=== PATIENT | male | born 1955 | race Caucasian/White ===

== ENCOUNTER 2018-02-09 02:24 | Outpatient (CLI) | payer MEDICAID, SELFPAY ==
[2018-02-09 11:10] LABS: Hemoglobin A1C 6.1 % (4.5-6.2)
== END 2018-02-09 02:44 ==
PROVIDERS: PCP Family Medicine; Visit Provider Family Medicine
DX: E11.9 Type 2 diabetes mellitus without complications (principal)
CPT/HCPCS: 36415; 83036

== ENCOUNTER 2018-08-10 02:07 | Outpatient (CLI) | payer MEDICARE, SELFPAY ==
[2018-08-10 12:29] LABS: Hemoglobin A1C 6.5 % (4.5-6.2)
== END 2018-08-10 02:27 ==
PROVIDERS: PCP Family Medicine; Visit Provider Family Medicine
DX: E11.9 Type 2 diabetes mellitus without complications (principal)
CPT/HCPCS: 36415; 83036

== ENCOUNTER 2018-09-30 02:08 | Outpatient (CLI) | payer MEDICARE, BC, SELFPAY ==
[2018-09-30 12:03] LABS: Anion Gap 9.4 mmol/L (3-11); BUN 23 mg/dL (7-18); CO2 28.6 mmol/L (21.0-32.0); CREATININE 0.96 mg/dL (0.70-1.30); Calcium 9.1 mg/dL (8.5-10.1); Chloride 102 mmol/L (98-107); Cholesterol 172 mg/dL (50-200); Glucose 173 mg/dL (70-100); HDL Cholesterol 44 mg/dL (40-60); LDL CHOLESTEROL 106 mg/dL (<100); Potassium 4.8 mmol/L (3.5-5.1); Sodium 140 mmol/L (136-145); Triglyceride 124 mg/dL (30-150)
== END 2018-09-30 02:28 ==
PROVIDERS: PCP Family Medicine; Visit Provider Family Medicine
DX: E11.9 Type 2 diabetes mellitus without complications (principal)
CPT/HCPCS: 36415; 80048; 80061; 83721

== ENCOUNTER 2019-05-10 07:00 | Outpatient (CLI) | payer MEDICARE, BC, SELFPAY ==
[2019-05-10 11:21] LABS: Hemoglobin A1C 6.9 % (3.8-5.6)
== END 2019-05-10 07:20 ==
PROVIDERS: PCP Family Medicine; Visit Provider Family Medicine
DX: E11.9 Type 2 diabetes mellitus without complications (principal)
CPT/HCPCS: 36415; 83036

== ENCOUNTER 2020-11-22 14:15 | Outpatient (CLI) | payer MEDICARE, BC, SELFPAY ==
[2020-11-22 12:50] LABS: Hemoglobin A1C 7.9 % (<5.7)
[2020-11-22 12:52] LABS: ALT 31 U/L (16-63); AST 21 U/L (15-37); Alkaline Phosphatase 141 U/L (46-116); Anion Gap 7.6 mmol/L (3-11); BUN 16 mg/dL (7-18); Bilirubin, Total 1.8 mg/dL (0.2-1.0); CO2 26.4 mmol/L (21.0-32.0); Calcium 9.4 mg/dL (8.5-10.1); Chloride 103 mmol/L (98-107); Glucose 218 mg/dL (74-106); Potassium 4.6 mmol/L (3.5-5.1); Sodium 137 mmol/L (136-145); Total Protein 6.9 g/dL (6.4-8.2)
[2020-11-23 22:15] LABS: Calculated LDL 94 mg/dL (<100); Cholesterol 179 mg/dL (<200); HDL Cholesterol 45 mg/dL (40-60); Triglyceride 202 mg/dL (<150)
== END 2020-11-22 14:16 | disposition home or self-care (01) ==
LOC: LOS 14:18
PROVIDERS: PCP Nurse Practitioner Family; Visit Provider Nurse Practitioner Family
DX: E11.9 Type 2 diabetes mellitus without complications (principal); N52.9 Male erectile dysfunction, unspecified; R03.0 Elevated blood-pressure reading, without diagnosis of hypertension
CPT/HCPCS: 36415; 80053; 80061; 83036

== ENCOUNTER 2021-05-24 04:09 | Outpatient (CLI) | payer MEDICARE, BC, SELFPAY ==
[2021-05-24 10:07] LABS: MCH 30.4 pg (27.0-33.0); MCHC 33.1 % (32.0-36.0); MCV 91.9 fL (80-95); Platelet Count 230 10^3/uL (130-400); RBC 6.42 10^6/uL (4.36-5.78); RDW 12.1 % (11.8-14.1); RDW-SD 41.5 fL; WBC 5.58 10^3/uL (4.4-10.8)
[2021-05-24 10:54] LABS: ALT 35 U/L (16-63); AST 29 U/L (15-37); Albumin 4.2 g/dL (3.4-5.0); Alkaline Phosphatase 126 U/L (46-116); Anion Gap 6.2 mmol/L (3-11); BUN 18 mg/dL (7-18); Bilirubin, Total 2.5 mg/dL (0.2-1.0); CO2 30.8 mmol/L (21.0-32.0); Calcium 8.9 mg/dL (8.5-10.1); Calculated LDL 111 mg/dL (<100); Chloride 101 mmol/L (98-107); Cholesterol 179 mg/dL (<200); Glucose 183 mg/dL (74-106); HDL Cholesterol 56 mg/dL (40-60); Potassium 4.7 mmol/L (3.5-5.1); Sodium 138 mmol/L (136-145); Triglyceride 63 mg/dL (<150)
[2021-05-24 11:31] LABS: COMMENT (LAB VIEW ONLY) 124.95 mg/dL
[2021-05-24 11:55] LABS: HGB 19.5 g/dL (13.5-17.5)
[2021-05-24 18:19] LABS: PSA, Screening 2.8 ng/mL (0.0-4.5)
[2021-05-26 15:18] LABS: Testosterone, Total 624 ng/dL (240-950)
[2021-05-27 10:52] LABS: Hepatitis C Ab w Rflx HCV PCR Negative (Negative)
== END 2021-05-24 04:10 | disposition home or self-care (01) ==
LOC: LBO 04:10
PROVIDERS: Family Medicine; PCP Nurse Practitioner Family; Visit Provider Nurse Practitioner Family
DX: E11.9 Type 2 diabetes mellitus without complications (principal); E29.1 Testicular hypofunction; I10 Essential (primary) hypertension; Z09 Encounter for follow-up examination after completed treatment for conditions other than malignant neoplasm; Z12.5 Encounter for screening for malignant neoplasm of prostate; Z11.59 Encounter for screening for other viral diseases
CPT/HCPCS: 36415; 80053; 80061; 84153; 84403; 85027; 86803; 82043; 82570; 83036

== ENCOUNTER 2021-10-04 01:36 | Outpatient (CLI) | payer MEDICARE, BC, SELFPAY ==
[2021-10-04 12:18] LABS: HCT 47.5 % (40.0-50.0); HGB 15.9 g/dL (13.5-17.5); MCH 30.3 pg (27.0-33.0); MCHC 33.5 % (32.0-36.0); MCV 91 fL (80-95); MPV 10.5 fL (8.0-11.0); Platelet Count 257 10^3/uL (130-400); RBC 5.24 10^6/uL (4.36-5.78); RDW 12.4 % (11.8-14.1); RDW-SD 41.3 fL; WBC 5.66 10^3/uL (4.4-10.8)
[2021-10-04 12:29] LABS: Hemoglobin A1C 9.6 % (<5.7)
[2021-10-04 12:42] LABS: ALT 29 U/L (16-63); AST 21 U/L (15-37); Albumin 3.9 g/dL (3.4-5.0); Alkaline Phosphatase 130 U/L (46-116); Anion Gap 7.7 mmol/L (3-11); BUN 19 mg/dL (7-18); Bilirubin, Total 1.6 mg/dL (0.2-1.0); CO2 29.3 mmol/L (21.0-32.0); CREATININE 0.9 mg/dL (0.70-1.30); Calcium 9.8 mg/dL (8.5-10.1); Chloride 104 mmol/L (98-107); Glucose 182 mg/dL (74-106); Potassium 4.7 mmol/L (3.5-5.1); Sodium 141 mmol/L (136-145); TSH (W/Ref FT4) 1.54 uIU/mL (0.36-3.74); Total Protein 6.8 g/dL (6.4-8.2)
== END 2021-10-04 01:37 | disposition home or self-care (01) ==
LOC: LOS 01:36
PROVIDERS: PCP Nurse Practitioner Family; Visit Provider Family Medicine
DX: D75.1 Secondary polycythemia (principal); E11.9 Type 2 diabetes mellitus without complications; R42 Dizziness and giddiness; I10 Essential (primary) hypertension
CPT/HCPCS: 36415; 80053; 85027; 83036; 84443

== ENCOUNTER 2022-06-23 00:54 | Outpatient (CLI) | payer MEDICARE, BC, SELFPAY ==
[2022-06-23 12:39] LABS: MCH 29.8 pg (27.0-33.0); MCHC 32.8 % (32.0-36.0); MCV 91 fL (80-95); MPV 10.7 fL (8.0-11.0); Platelet Count 214 10^3/uL (130-400); RDW 12.7 % (11.8-14.1); RDW-SD 42.4 fL; WBC 6.06 10^3/uL (4.4-10.8)
[2022-06-23 12:47] LABS: Calculated LDL 130 mg/dL (<100); Cholesterol 207 mg/dL (<200); HDL Cholesterol 58 mg/dL (40-60); Triglyceride 97 mg/dL (<150)
[2022-06-23 12:53] LABS: HGB 19.4 g/dL (13.5-17.5)
[2022-06-23 12:54] LABS: HCT 59.1 % (40.0-50.0)
[2022-06-23 13:03] LABS: Hemoglobin A1C 9.1 % (<5.7)
== END 2022-06-23 00:55 | disposition home or self-care (01) ==
LOC: LOS 00:54
PROVIDERS: PCP Nurse Practitioner Family; Visit Provider Nurse Practitioner Family
DX: E78.5 Hyperlipidemia, unspecified (principal); D75.1 Secondary polycythemia; E11.9 Type 2 diabetes mellitus without complications
CPT/HCPCS: 36415; 80061; 85027; 83036

== ENCOUNTER 2022-06-26 14:49 | Outpatient (REF) | payer MEDICARE, BC, SELFPAY ==
[2022-06-26 13:28] LABS: COMMENT (LAB VIEW ONLY) 43.91 mg/dL; Microalb ug/mg Crea 9.3 ug/mg Cr
== END 2022-06-26 14:50 | disposition home or self-care (01) ==
LOC: LBN 14:49
PROVIDERS: PCP Nurse Practitioner Family; Visit Provider Nurse Practitioner Family
DX: E11.9 Type 2 diabetes mellitus without complications (principal)
CPT/HCPCS: 82043; 82570

== ENCOUNTER 2022-09-24 03:12 | Outpatient (CLI) | payer MEDICARE, BC, SELFPAY ==
[2022-09-24 12:42] LABS: HCT 50.5 % (40.0-50.0); HGB 17.2 g/dL (13.5-17.5); MCH 30.8 pg (27.0-33.0); MCHC 34.1 % (32.0-36.0); MCV 90 fL (80-95); MPV 10.1 fL (8.0-11.0); Platelet Count 252 10^3/uL (130-400); RBC 5.59 10^6/uL (4.36-5.78); RDW 13.3 % (11.8-14.1); RDW-SD 44.5 fL; WBC 7.31 10^3/uL (4.4-10.8)
[2022-09-24 13:15] LABS: Hemoglobin A1C 7.5 % (<5.7)
== END 2022-09-24 03:13 | disposition home or self-care (01) ==
LOC: LOS 03:12
PROVIDERS: PCP Nurse Practitioner Family; Visit Provider Nurse Practitioner Family
DX: D75.1 Secondary polycythemia (principal); E11.9 Type 2 diabetes mellitus without complications
CPT/HCPCS: 36415; 85027; 83036

== ENCOUNTER 2022-12-24 02:50 | Outpatient (CLI) | payer MEDICARE, BC, SELFPAY ==
[2022-12-24 12:13] LABS: HCT 53.9 % (40.0-50.0); HGB 18.2 g/dL (13.5-17.5); MCH 30.2 pg (27.0-33.0); MCHC 33.8 % (32.0-36.0); MCV 90 fL (80-95); MPV 10.2 fL (8.0-11.0); Platelet Count 231 10^3/uL (130-400); RBC 6.02 10^6/uL (4.36-5.78); RDW 11.9 % (11.8-14.1); WBC 5.34 10^3/uL (4.4-10.8)
[2022-12-24 12:28] LABS: Hemoglobin A1C 7.7 % (<5.7)
[2022-12-24 12:31] LABS: Calculated LDL 125 mg/dL (<100); Cholesterol 218 mg/dL (<200); HDL Cholesterol 56 mg/dL (40-60); Triglyceride 188 mg/dL (<150)
[2022-12-28 15:38] LABS: Testosterone, Total 43 ng/dL (240-950)
== END 2022-12-24 02:51 | disposition home or self-care (01) ==
LOC: LOS 02:51
PROVIDERS: PCP Nurse Practitioner Family; Visit Provider Nurse Practitioner Family
DX: D75.1 Secondary polycythemia (principal); E11.9 Type 2 diabetes mellitus without complications; E78.5 Hyperlipidemia, unspecified; E29.1 Testicular hypofunction
CPT/HCPCS: 80061; 84403; 85027; 83036

== ENCOUNTER 2023-02-19 01:01 | Outpatient (CLI) | payer MEDICARE, BC, SELFPAY ==
[2023-02-19 12:48] LABS: HCT 53.3 % (40.0-50.0); HGB 17.7 g/dL (13.5-17.5); MCH 30.2 pg (27.0-33.0); MCHC 33.2 % (32.0-36.0); MCV 91 fL (80-95); MPV 10.6 fL (8.0-11.0); Platelet Count 234 10^3/uL (130-400); RBC 5.86 10^6/uL (4.36-5.78); RDW 12.9 % (11.8-14.1); RDW-SD 43.5 fL; WBC 6.13 10^3/uL (4.4-10.8)
[2023-02-21 11:25] LABS: Testosterone, Total 163 ng/dL (240-950)
== END 2023-02-19 01:02 | disposition home or self-care (01) ==
LOC: LOS 01:01
PROVIDERS: PCP Nurse Practitioner Family; Visit Provider Nurse Practitioner Family
DX: E29.1 Testicular hypofunction (principal)
CPT/HCPCS: 36415; 84403; 85027

== ENCOUNTER 2023-04-29 10:57 | Inpatient (IN) | payer MEDICARE, BC, SELFPAY ==
[2023-04-29] VITALS (12 sets, daily range): BP systolic 144–193; BP diastolic 66–113; PULSE 63–111; RESP 18–26; TEMP 35.6–37.7; O2SAT 91–98
--- NOTE | 2023-04-29 11:45 | RT.EKG_ITS ---
APPROVED REPORT Exam: Resting ECG Reason for Exam: abd pain Patient Location: E HR:61 bpm ECG Measurements Heart Rate 61 AXIS VT 162 P 52 QRSd 81 QRS 20 QT 422 T 29 QTc 425 Conclusion Sinus rhythm...normal P axis, V-rate 60- 99 NSR, no acute STTW changes, No STEMI No change from previous
--- NOTE | 2023-04-29 11:58 | DI.CT_ITS ---
Exam(s) CT CHEST/ABD/PEL W EXAM: CT CHEST/ABD/PEL W CLINICAL HISTORY: severe abdominal pain. TECHNIQUE: Imaging Protocol: Axial computed tomography images with coronal and sagittal reformatted images were created and reviewed CONTRAST MATERIAL: Intravenous: Omnipaque 350 Contrast volume:100 ml Oral: None COMPARISON: CT RENAL COLIC WO CONTRAST from 04/25/2012 CT CHEST FOR PULMONARY EMBOLUS from 08/27/2014 FINDINGS: CHEST: LUNGS: No confluent infiltrates nor pleural effusions. No obvious lung nodules.. MEDIASTINUM: There is no hilar nor mediastinal adenopathy. Visualized thyroid unremarkable. CARDIAC: Heart size is normal. There is no pericardial effusion.Thoracic aorta caliber is normal and there is no evidence of dissection. OSSEOUS: No significant osseous lesions.Acute fractures evident.. ABDOMEN: There is no ascites. LIVER: There are no focal hepatic lesions nor dilatation of intrahepatic ducts. GALLBLADDER/BILIARY: There are multiple gallstones layered on the dependent wall the gallbladder. Ga llbladder is mildly distended but not obviously edematous and there is no pericholecystic fluid. The re is no radiopaque calculus seen in the CBD. CBD is not dilated. PANCREAS: No evidence of pancreatic mass nor dilatation of the pancreatic duct. SPLEEN: Spleen is not enlarged. There are no intrasplenic lesions. Splenic and portal veins are maurer nt. ADRENALS: There are no significant adrenal masses. KIDNEYS: No calculi nor hydronephrosis. No solid renal masses. No cysts evident. ABDOMINAL AORTA: Abdominal aorta is not enlarged. LYMPH NODES: There is no retroperitoneal nor paraaortic adenopathy. ABDOMINAL WALL: No evidence of significant anterior abdominal wall nor inguinal hernia. GI: There is no evidence of bowel obstruction. PELVIS: LYMPH NODES: There is no intrapelvic nor inguinal adenopathy. GI: No evidence of appendicitis.No evidence of sigmoid diverticulitis. URINARY BLADDER: No calculi nor masses evident REPRODUCTIVE: Moderate prostate enlargement. No obturator adenopathy. Seminal vesicles unremarkable . OSSEOUS: No significant osseous lesions. No fractures. Laminectomies in the lumbar spine noted. Mild degenerative anterolisthesis of L3 upon L4 related to facet arthropathy. Also mild anterolisthesis L4 upon L5. IMPRESSION: 1. Cholelithiasis. There are multiple gallstones in the gallbladder lumen. Gallbladder lumen is mil dly distended but does not appear edematous and there is no pericholecystic fluid. The CBD is not di lated and there are no dilated intrahepatic ducts. 2. No acute intrathoracic findings. 3. No evidence of aortic dissection. 4. Other findings as above. Called to ER. RADIATION DOSE DELIVERED: Total DLP DATA REPOSITORY: All CT scans at this facility are submitted to the National Radiology Data Registry (NRDR) Dose Index Registry (DIR) with the [employer] (ACR). RADIATION OPTIMIZATION: All CT scans at this facility use at least one of these dose optimization te chniques: automated exposure control; mA and/or kV adjustment per patient size (includes targeted exa ms where dose is matched to clinical indication); or iterative reconstruction.
[2023-04-29] MEDS: Normal Saline 1,000 ML 1000 ML IV ×2 (12:09→15:52)
[2023-04-29 12:14] LABS: Lactate 1.8 mmol/L (0.6-1.4)
[2023-04-29] MEDS: fentaNYL 100 MCG/2 ML VIAL 25 MCG IVP ×2 (12:17→13:09)
[2023-04-29 12:18] LABS: Abs Immature Grans 0.05 10^3/uL (0.0-0.06); Absolute Lymphocyte Count 0.76 10^3/uL (1.2-3.4); Absolute Monocyte Count 0.99 10^3/uL (0.1-0.8); Basophils % 0.2; HCT 54.3 % (40.0-50.0); HGB 18.5 g/dL (13.5-17.5); Immature Grans % 0.3; Lymphocytes % 4.4; MCH 30.2 pg (27.0-33.0); MCHC 34.1 % (32.0-36.0); MCV 89 fL (80-95); MPV 10.3 fL (8.0-11.0); Monocytes % 5.7; Neutrophils % 89.4; Platelet Count 264 10^3/uL (130-400); RBC 6.13 10^6/uL (4.36-5.78); RDW 11.8 % (11.8-14.1); RDW-SD 37.7 fL
[2023-04-29 12:21] LABS: Absolute Basophil Count 0.03 10^3/uL (0.0-0.2); Absolute Neutrophil Count 15.47 10^3/uL (1.2-6.7)
[2023-04-29 12:25] LABS: INR 1.1 (0.9-1.1); Prothrombin Time 11.4 sec (9.1-11.1)
[2023-04-29 12:38] LABS: Bilirubin Negative (Negative); Blood Negative (Negative); Clarity Clear (Clear); Glucose 500 mg/dL (Negative); Ketones >=160 mg/dL (Negative); Leukocyte Esterase Negative (Negative); Nitrite Negative (Negative); Specific Gravity 1.015 (1.005-1.025); Urobilinogen 0.2 mg/dL (Up to 0.2); pH 6.5 (5-8)
[2023-04-29 12:42] LABS: ALT 26 U/L (16-63); AST 22 U/L (15-37); Albumin 4.3 g/dL (3.4-5.0); Alkaline Phosphatase 152 U/L (46-116); Anion Gap 7.8 mmol/L (3-11); BUN 18 mg/dL (7-18); CO2 32.2 mmol/L (21.0-32.0); CREATININE 0.9 mg/dL (0.70-1.30); Calcium 9.5 mg/dL (8.5-10.1); Chloride 103 mmol/L (98-107); Estimated GFR 92.45 (mL/min/1.73m2); Glucose 224 mg/dL (74-106); Lipase 27 U/L (16-77); Magnesium 1.8 mg/dL (1.8-2.4); Potassium 4.6 mmol/L (3.5-5.1); Sodium 143 mmol/L (136-145); Total Protein 7.6 g/dL (6.4-8.2); Troponin I < 50 ng/L (<or=60)
--- NOTE | 2023-04-29 12:52 | W.ED.GENAD ---
Discharge Plan Disposition Patient Disposition: Admit to [facility] Discharge Details Clinical Impression: Gallstones, Biliary colic Primary Care Provider: Semaj Escobar ED Provider: Thalia Veliz Home Meds and New Rx's Prescriptions: No Action glipizide 10 mg tablet 10 mg PO DAILY Qty: 90 3RF multivitamin 1 EACH capsule 1 cap PO DAILY (DME) blood-glucose meter [[employer] Ultra2 Meter] 1 EACH kit 1 ea Miscellaneous DAILY Qty: 1 0RF empagliflozin 10 mg tablet 10 mg PO DAILY Qty: 90 3RF (DME) lancets 33 gauge misc 1 ea Miscellaneous DAILY Qty: 100 4RF Rx Instructions: One daily (DME) blood sugar diagnostic Strip See Dose Instructions .ROUTE .MEDSUPPLY Qty: 100 4RF Dose Instruction: One Daily Rx Instructions: One Daily testosterone 20.25 mg/1.25 gram (1.62 %) gel in metered-dose pump 4 pump TP DAILY Qty: 450 3RF Rx Instructions: apply 2 pumps over max area of EACH upper arm and shoulder Discharge Data Discharge Physician: Thalia Veliz Medical Decision Making This is a 67-year-old male who presents with acute abdominal pain. It does not radiate to the back but he is in moderate to severe pain. His only past surgical history is of an appendectomy. I am concerned that he could have an acute surgical abdomen because of the amount of pain and tenderness on exam. My plan is to establish an IV and to give him IV narcotics. His allergy to narcotics was that they caused him to get loopy.. We will give him fentanyl and lower doses and titrated for his pain. Will order a CT of the abdomen to rule out pathology including AAA, perforated ulcer, volvulus, mesenteric ischemia. Will obtain a right count to evaluate leukocytosis and H&H as well as his differential. Will obtain a comprehensive metabolic panel and a lipase to rule out electrolyte disorder, hepatitis, pancreatitis and evaluate his renal function and liver function. Differential Diagnosis Differential Diagnosis: Pancreatitis, ischemic, acute cholecystitis, volvulus, peptic ulcer disease Medical Records Medical records reviewed: Yes I reviewed the patient's medical records. Imaging Data Radiologic Study: Imaging: CT Scan (Chest abdomen and pelvis with IV contrast) Radiologist's impression: 1. Cholelithiasis. There are multiple gallstones in the gallbladder lumen. Gallbladder lumen is mildly distended does not appear edematous and there is no pericholecystic fluid. The CBD is not dilated and there are no dilated intrahepatic ducts. 2. No acute intrathoracic findings. 3. No evidence of aortic dissection. 4. Other findings as above Lab Data Lab results reviewed: Yes I reviewed the patient's lab results. Lab results narrative: Significant leukocytosis. Hemoconcentration, left shift, normal renal function, hyperglycemia, elevated urine ketones, glucosuria ECG Data Attestation: I personally reviewed and interpreted this ECG (s) as follows: Prior ECG tracings: available for review HPI General Date/Time Provider Initiated Documentation: 04/29/23 11:15. Limitations to Documentation: no limitations. Information obtained by: patient and family. History of Present Illness with intensity rated at 9. Quality is described as constant, HPI Narrative: Time seen was 11:15a in triage and then in the main ED. The patient is a 67-year-old male who presents with abdominal pain which began at 1 AM last night. He had a hamburger at 5 PM and snacks in the evening. The pain came on acutely and he was unable to sleep. The pain is 9 out of 10 in severity he denies any radiation or aggravating or alleviating factors. His last bowel movement was yesterday and was normal. He has had vomiting but no fever or chills. He denies any chest pain. He denies any previous similar episodes. His had the same meal and has not been ill. He has had no trauma, no foreign travel, no diarrhea fevers or chills. He has had slight increase in urinary frequency but no dysuria or discharge. He does have allergies to penicillin which causes anaphylaxis and to oxycodone which made him act loopy. He denies any blood in the stool or emesis. He did try to take Tums without relief. He denies any previous similar episodes. No fevers or chills. No URI symptoms. He also endorses bloating. No radiation to the back. He denies overuse of nonsteroidal anti-inflammatories and denies heavy drinking. His only past abdominal surgical history is an appendectomy Related Data Home Medications Medication Instructions Recorded Confirmed multivitamin 1 cap PO DAILY 09/16/12 04/29/23 blood-glucose meter (OneTouch ##1 10/06/17 04/29/23 Ultra2 Meter kit) empagliflozin 10 mg tablet 10 mg PO DAILY #90 tabs 06/18/22 04/29/23 glipizide 10 mg tablet 10 mg PO DAILY #90 tabs 06/26/22 04/29/23 blood sugar diagnostic #100 ea 01/08/23 04/29/23 lancets 33 gauge #100 ea 01/08/23 04/29/23 testosterone 4 pump topical DAILY #450 grams 03/12/23 04/29/23 Previous Rx's Medication Instructions Recorded blood-glucose meter (OneTouch ##1 10/06/17 Ultra2 Meter kit) empagliflozin 10 mg tablet 10 mg PO DAILY #90 tabs 06/18/22 glipizide 10 mg tablet 10 mg PO DAILY #90 tabs 06/26/22 blood sugar diagnostic #100 ea 01/08/23 lancets 33 gauge #100 ea 01/08/23 testosterone 4 pump topical DAILY #450 grams 03/12/23 Allergies Allergy/AdvReac Type Severity Reaction Status Date / Time ampicillin Allergy Severe Anaphylaxsi Verified 04/29/23 11:12 s Penicillins Allergy Severe Anaphylaxsi Verified 04/29/23 11:12 s sulbactam Allergy Unknown Verified 04/29/23 11:12 oxycodone [Oxycodone] AdvReac Intermediate altered Verified 04/29/23 11:12 mental status General Stated Complaint: Abd Prob INA: 3 PFSH All Active Problems Acute cholecystitis (Acute) Biliary colic (Acute) Gallstones (Acute) Polycythemia (Acute) Gilbert syndrome (Acute) Hyperlipidemia (Acute) Type 2 diabetes mellitus without complication, without long-term current use of insulin (Chronic 10/06/17) Tinnitus (Chronic 11/21/13) Sensorineural hearing loss, bilateral (Chronic 12/12/13) 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 appendectomy b. shoulder surgeries c. back surgeries with some surgical hardware placed Family History Mother , 82 Essential hypertension Stroke Colon cancer Heart disease Hypertension Father , 75 Diabetes Essential hypertension Heart disease MDS (myelodysplastic syndrome) Prostate cancer Sister No problems noted. Brother , 55 Heart disease Myocardial infarction Maternal Grandfather , 60 Lung cancer Paternal Grandfather , 85 Heart disease Cancer Maternal Grandmother , 75 Pancreatic cancer Colon cancer Paternal Grandmother , 94 Heart disease Sister No problems noted. Sister No problems noted. Brother No problems noted. Son No problems noted. Son No problems noted. Daughter No problems noted. 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 Pets and animals: No Sexually active: No Do you think of yourself as: straight/heterosexual Current gender identity: male What is your relationship status?: How often do you talk on the phone with friends or family?: never How often do you get together with friends or relatives?: decline to answer How often do you attend rastafari or buddhist services?: decline to answer Do you belong to any clubs or organized social groups?: decline to answer Panel score (0-1 are the most socially isolated patients): 1 NHANES result reviewed/action taken: No Duration: 30-45 minutes/day Frequency: 5-6 times per week Noemí/Caodaism: No preference Special noemí needs: No Seatbelt use: always Drive 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 He has a normal room air O2 sat of 98% but does appear in a moderate amount of pain. Const General: cooperative, healthy appearing, well developed, well groomed and well hydrated Nutritional Appearance: well nourished Orientation: alert, awake and oriented x3 HENMT Head: normal to inspection, normocephalic and atraumatic Ears: hearing grossly normal bilaterally and external ears normal General nose exam: external nose normal, nares normal and no nasal discharge Face and sinus: normal facial exam, sinuses nontender and face symmetric Mouth: oral mucosae normal, lip normal, tongue normal, oropharynx normal, moist mucous membranes and other (Normal phonation. The patient is handling secretions.) Throat: posterior oropharynx normal and uvula midline Eyes General: appearance normal, both eyes and all related structures Eyelids: eyelids normal Conjunctivae: conjunctivae normal Sclera: sclerae normal Cornea: corneas normal Pupils: PERRL EOM: EOM intact bilaterally and No nystagmus Neck Neck: normal visual inspection, full ROM, no lymphadenopathy, no meningeal signs, trachea midline and supple Lymphatic: no lymphadenopathy noted Chest Chest: normal inspection of the chest Resp Effort & Inspection: normal respiratory effort, able to speak in complete sentences, no audible wheezes, no nasal flaring, no respiratory distress, no retractions, no stridor, not tachypneic, no tracheal deviation, no use of accessory muscles, No prolonged expiratory phase and other (Normal inspiratory to expiratory ratio.) Auscultation: clear to auscultation bilaterally, no rales, no rhonchi, no wheezes and no rubs Tactile Fremitus: tactile fremitus absent Cardio Jugular venous pressure: no JVD Palpation: normal PMI Rate: regular rate Rhythm: regular rhythm Heart Sounds: S1 normal, S2 normal, no gallops, no murmurs and no rubs GI Other: His abdomen is protuberant. He has a right lower quadrant surgical scar. He has diffuse tenderness throughout the abdomen but does not have any involuntary guarding. He is most tender in the epigastric region. There are no pulsatile masses or bruits. He has slightly hypoactive bowel sounds. No ecchymoses no pulsatile masses or bruits General: No CVA tenderness Skin General skin exam: no rashes or lesions noted, turgor normal, no petechiae, no purpura and other (Skin is normal for ethnicity.) Lesions: no lesions Rashes: no rashes Trauma: no lacerations or abrasions Neuro General: patient alert, patient awake, patient oriented x3, moves all extremities, no meningeal signs, no focal motor deficits and CN's II-XI intact bilaterally Cranial Nerves: CN's II-XI intact bilaterally, PERRL, accommodation normal, EOM intact bilaterally, no nystagmus, facial strength normal, tongue midline, hearing normal and no nystagmus Cognition: normal cognition Speech: speech normal Gait: normal gait Motor: muscle tone normal throughout and strength 5/5 throughout Sensory Exam: no sensory deficits noted Extrem General: normal to inspection, full ROM, capillary refill normal, no clubbing, cyanosis or edema and no calf tenderness Psych Appearance: grossly normal Affect: normal affect Attitude: cooperative Thought Process: normal Thought Content: normal Insight: insight good Judgment: judgment good Other: The patient appears to have capacity make medical decisions. Course 1534 Pm the patient is still having pain, discussed the CT findings. 1631 PM: I have reviewed the EKG and the patient has no QT prolongation. I have written for jose and will consult general surgery for gallstones with continued pain. 1720PM: patient has been seen by general surgery who will admit the patient Vital Signs Vital signs: Vital Signs Temperature 35.6 C L 04/29/23 11:08 Pulse 70 04/29/23 11:08 Respiratory Rate 18 04/29/23 11:08 Blood Pressure 181/96 H 04/29/23 11:08 Pulse Oximetry 97 04/29/23 11:08 Temperature 35.6 C L 04/29/23 11:08 Pulse 70 04/29/23 11:08 Respiratory Rate 18 04/29/23 11:08 Respiratory Effort Normal, Non-Labored 04/29/23 11:42 Blood Pressure 181/96 H 04/29/23 11:08 Pulse Oximetry 97 04/29/23 11:08 Oxygen Delivery Method Room Air 04/29/23 11:08 Oxygen Flow Rate 0 04/29/23 11:08 Lab/Test Results Lab/Test Results: Laboratory Tests Range/Units 04/29/23 04/29/23 12:09 12:31 WBC (4.4-10.8) 10^3/uL 17.30 H RBC (4.36-5.78) 10^6/uL 6.13 H Hgb (13.5-17.5) g/dL 18.5 H Hct (40.0-50.0) % 54.3 H MCV (80-95) fL 89 MCH (27.0-33.0) pg 30.2 MCHC (32.0-36.0) % 34.1 RDW (11.8-14.1) % 11.8 Plt Count (130-400) 10^3/uL 264 MPV (8.0-11.0) fL 10.3 Immature Gran % 0.3 Neutrophils % 89.4 Lymphocytes % 4.4 Monocytes % 5.7 Eosinophils % 0.0 Basophils % 0.2 Nucleated RBC % (0.0-0.3) % 0.0 Absolute Neutrophils (1.2-6.7) 10^3/uL 15.47 H Absolute Lymphocytes (1.2-3.4) 10^3/uL 0.76 L Absolute Monocytes (0.1-0.8) 10^3/uL 0.99 H Absolute Eosinophils (0.0-0.7) 10^3/uL 0.00 Absolute Basophils (0.0-0.2) 10^3/uL 0.03 PT (9.1-11.1) sec 11.4 H INR (0.9-1.1) 1.1 VBG Lactate (0.6-1.4) mmol/L 1.8 H Sodium (136-145) mmol/L 143 Potassium (3.5-5.1) mmol/L 4.6 Chloride (98-107) mmol/L 103 Carbon Dioxide (21.0-32.0) mmol/L 32.2 H Anion Gap (3-11) mmol/L 7.8 BUN (7-18) mg/dL 18 Creatinine (0.70-1.30) mg/dL 0.9 Est GFR (CKD-EPI 2020) (mL/min/1.73m2) 92.45 Glucose (74-106) mg/dL 224 H Calcium (8.5-10.1) mg/dL 9.5 Magnesium (1.8-2.4) mg/dL 1.8 Total Bilirubin (0.2-1.0) mg/dL 2.0 H AST (15-37) U/L 22 ALT (16-63) U/L 26 Alkaline Phosphatase (46-116) U/L 152 H Troponin I (<or=60) ng/L < 50 Total Protein (6.4-8.2) g/dL 7.6 Albumin (3.4-5.0) g/dL 4.3 Lipase (16-77) U/L 27 Urine Color (Yellow) Yellow Urine Clarity (Clear) Clear Urine pH (5-8) 6.5 Ur Specific [place] (1.005-1.025) 1.015 Urine Protein (Negative) mg/dL Negative Urine Ketones (Negative) mg/dL >=160 H Urine Blood (Negative) Negative Urine Nitrite (Negative) Negative Urine Bilirubin (Negative) Negative Urine Urobilinogen (Up to 0.2) mg/dL 0.2 Ur Leukocyte Esterase (Negative) Negative Urine Glucose (Negative) mg/dL 500 H Critical Care Time Critical Care Time Critical Care Time: Yes Total Critical Care Time: 51 Attestation: This includes time at the bedside including frequent reassessment, review of labs and EKG and radiographs, review of old records and consultation with general surgery.
[2023-04-29] MEDS: metroNIDAZOLE 500 MG/100 ML BAG 100 MG IVPB ×2 (13:20→21:19)
[2023-04-29] MEDS: Omnipaque 350 MG/ML 100 ML BTL IJ (13:33)
[2023-04-29] MEDS: Normal Saline - Diluent 50 ML VIAL IJ (13:35)
[2023-04-29] MEDS: levoFLOXacin 750 MG/150 ML BAG 100 MG IVPB (14:08)
[2023-04-29 15:21] LABS: Troponin I < 50 ng/L (<or=60)
[2023-04-29] MEDS: HYDROmorphone 2 MG/ML SYR 1 MG IVP (15:44)
[2023-04-29] MEDS: Ondansetron 4 MG/2 ML VIAL IVP ×2 (16:41→20:34)
--- NOTE | 2023-04-29 17:23 | W.PM.HP.N ---
Date of service: 04/29/23 Time of Service: 17:23 Assessment and Plan Assessment and plan (1) Acute cholecystitis: Status: Acute Assessment and plan: Although the CAT scan does not show obvious pericholecystic fluid or inflammation, he certainly has some clinical features here that are consistent with acute cholecystitis. Furthermore, he has a fairly significant gallstone burden. In that regards, I do think cholecystitis is the most likely diagnosis. Mesenteric ischemia is also within the realm of possibilities here. However, his pain does seem in proportion to the examination. Furthermore, there is pretty good visualization of the SMA proper as well as the other mesenteric vessels, and they appear well-perfused without any evidence of significant enteritis or other small bowel pathology. For now, I will start him on some antibiotics and continue with some gentle fluid resuscitation. Will repeat a lactate. Assuming he does well through the night, then we will plan for cholecystectomy tomorrow. History of Present Illness History of Present Illness Chief Complaint: Abdominal pain with nausea Narrative: Matti 67 years old, he was awoken from sleep around 1 AM with sharp, slightly right-sided abdominal pain. He described it as stabbing in nature. He got up and tried to move around a little bit. He found no relief. He took some Tums. Not long after he developed some increased nausea with several episodes of vomiting. This also failed to relieve any of the discomfort. The pain continued through the morning time into today. It has been fairly constant since this afternoon. Review of Systems Constitutional Constitutional: Reports anorexia, Denies body ache(s), Denies fatigue, Denies fever(s), Denies lethargy and Denies poor appetite Eyes Eyes: Reports system reviewed and no additional complaints, except as documented ENT Ears, Nose, Mouth, and Throat: Reports system reviewed and no additional complaints, except as documented Cardiovascular Cardiovascular: Reports system reviewed and no additional complaints, except as documented, Denies chest pain and Denies dyspnea Respiratory Respiratory: Denies chest congestion, Denies cough and Denies dyspnea Gastrointestinal Gastrointestinal: Reports abdominal pain, Reports cramping, Reports nausea and Reports vomiting Genitourinary Genitourinary: Reports system reviewed and no additional complaints, except as documented Musculoskeletal Musculoskeletal: Reports arthralgias Neurologic Neurologic: Reports system reviewed and no additional complaints, except as documented Psychiatric Psychiatric: Reports system reviewed and no additional complaints, except as documented Endocrine Endocrine: Denies fatigue Hematologic/Lymphatic Hematologic/Lymphatic: Denies easy bleeding and Denies easy bruising PFSH All Active Problems (Updated 04/29/23 @ 17:31 by Santos Lawrence MD) Acute cholecystitis (Acute) Biliary colic (Acute) Gallstones (Acute) Polycythemia (Acute) Gilbert syndrome (Acute) Hyperlipidemia (Acute) Type 2 diabetes mellitus without complication, without long-term current use of insulin (Chronic 10/06/17) Tinnitus (Chronic 11/21/13) Sensorineural hearing loss, bilateral (Chronic 12/12/13) 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 appendectomy b. shoulder surgeries c. back surgeries with some surgical hardware placed Family History Mother , 82 Essential hypertension Stroke Colon cancer Heart disease Hypertension Father , 75 Diabetes Essential hypertension Heart disease MDS (myelodysplastic syndrome) Prostate cancer Sister No problems noted. Brother , 55 Heart disease Myocardial infarction Maternal Grandfather , 60 Lung cancer Paternal Grandfather , 85 Heart disease Cancer Maternal Grandmother , 75 Pancreatic cancer Colon cancer Paternal Grandmother , 94 Heart disease Sister No problems noted. Sister No problems noted. Brother No problems noted. Son No problems noted. Son No problems noted. Daughter No problems noted. 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 Pets and animals: No Sexually active: No Do you think of yourself as: straight/heterosexual Current gender identity: male What is your relationship status?: How often do you talk on the phone with friends or family?: never How often do you get together with friends or relatives?: decline to answer How often do you attend voodoo or pentecostalism services?: decline to answer Do you belong to any clubs or organized social groups?: decline to answer Panel score (0-1 are the most socially isolated patients): 1 NHANES result reviewed/action taken: No Duration: 30-45 minutes/day Frequency: 5-6 times per week Noemí/Yarsani: No preference Special noemí needs: No Seatbelt use: always Drive intox or ride w/intox pick up truck driver: No Do you feel safe in your relationship?: Yes Meds Allergies and Home Medications Allergies Allergy/AdvReac Type Severity Reaction Status Date / Time ampicillin Allergy Severe Anaphylaxsi Verified 04/29/23 11:12 s Penicillins Allergy Severe Anaphylaxsi Verified 04/29/23 11:12 s sulbactam Allergy Unknown Verified 04/29/23 11:12 oxycodone [Oxycodone] AdvReac Intermediate altered Verified 04/29/23 11:12 mental status Home Medications Medication Instructions Recorded Confirmed Type multivitamin 1 cap PO DAILY 09/16/12 01/07/23 History blood-glucose meter ([employer] ##1 10/06/17 01/07/23 Rx Ultra2 Meter kit) empagliflozin 10 mg tablet 10 mg PO DAILY #90 tabs 06/18/22 01/07/23 Rx glipizide 10 mg tablet 10 mg PO DAILY #90 tabs 06/26/22 01/07/23 Rx blood sugar diagnostic #100 ea 01/08/23 Rx lancets 33 gauge #100 ea 01/08/23 Rx testosterone 4 pump topical DAILY #450 grams 03/12/23 Rx Exam Const General: cooperative and healthy appearing Nutritional Appearance: average body habitus Orientation: alert, awake and oriented x3 HENMT Head: normal to inspection Eyes General: appearance normal, both eyes and all related structures Neck Neck: normal visual inspection, full ROM and no lymphadenopathy Chest Chest: normal inspection of the chest Resp Effort & Inspection: normal respiratory effort Auscultation: clear to auscultation bilaterally Cardio Rate: regular rate Rhythm: regular rhythm Heart Sounds: S1 normal and S2 normal GI Inspection: normal to inspection and distended Palpation: soft, hernia (Reducible umbilical) and tender Percussion: normal to percussion Auscultation: normal bowel sounds Skin General skin exam: no rashes or lesions noted Neuro General: patient alert, patient awake and patient oriented x3 Extrem Right lower extremity: cyanosis and edema Left lower extremity: cyanosis and edema Results Labs 04/29/23 12:09 04/29/23 12:09 Labs: Laboratory Results - last 24 hr 04/29/23 04/29/23 04/29/23 12:09 12:31 14:58 WBC 17.30 H RBC 6.13 H Hgb 18.5 H Hct 54.3 H MCV 89 MCH 30.2 MCHC 34.1 RDW 11.8 Plt Count 264 MPV 10.3 Immature Gran % 0.3 Neutrophils % 89.4 Lymphocytes % 4.4 Monocytes % 5.7 Eosinophils % 0.0 Basophils % 0.2 Nucleated RBC % 0.0 Absolute Neutrophils 15.47 H Absolute Lymphocytes 0.76 L Absolute Monocytes 0.99 H Absolute Eosinophils 0.00 Absolute Basophils 0.03 PT 11.4 H INR 1.1 VBG Lactate 1.8 H Sodium 143 Potassium 4.6 Chloride 103 Carbon Dioxide 32.2 H Anion Gap 7.8 BUN 18 Creatinine 0.9 Est GFR (CKD-EPI 2020) 92.45 Glucose 224 H Calcium 9.5 Magnesium 1.8 Total Bilirubin 2.0 H AST 22 ALT 26 Alkaline Phosphatase 152 H Troponin I < 50 < 50 Total Protein 7.6 Albumin 4.3 Lipase 27 Urine Color Yellow Urine Clarity Clear Urine pH 6.5 Ur Specific [place] 1.015 Urine Protein Negative Urine Ketones >=160 H Urine Blood Negative Urine Nitrite Negative Urine Bilirubin Negative Urine Urobilinogen 0.2 Ur Leukocyte Esterase Negative Urine Glucose 500 H Last Vital Signs Temp 98.3 F 04/29/23 15:46 Pulse 111 H 04/29/23 15:46 Resp 18 04/29/23 15:46 BP 193/93 H 04/29/23 15:46 Pulse Ox 98 04/29/23 15:46 Time Spent Time spent with Patient: 40-54 minutes Time was spent: preparing to see the patient(eg.review tests), obtaining and/or reviewing separately otained hiistory, indepentently interpreting results and counseling the patient
[2023-04-29] MEDS: ACETAMINOPHEN 1,000 MG/100 ML BTL 400 MG IVPB (20:34)
[2023-04-29] MEDS: Lactated Ringers 1,000 ML 125 ML IV (20:34)
[2023-04-29] MEDS: HYDROmorphone 2 MG/ML SYR 0.5 MG IVP (20:35)
[2023-04-29] MEDS: Normal Saline Flush 10 ML SYR IVP (20:35)
[2023-04-29] MEDS: Pantoprazole 40 MG VIAL IVP (21:19)
[2023-04-29] MEDS: CEFEPIME 2 GM in Normal Saline 100 ML IVPB (23:03)
[2023-04-30] VITALS (15 sets, daily range): BP systolic 121–179; BP diastolic 69–92; PULSE 77–102; RESP 12–20; TEMP 36.4–37.3; O2SAT 91–99; BMI 27.3
[2023-04-30] MEDS: HYDROmorphone 2 MG/ML SYR 0.5 MG IVP ×3 (01:43→11:18)
[2023-04-30] MEDS: ACETAMINOPHEN 1,000 MG/100 ML BTL 400 MG IVPB (04:18)
[2023-04-30] MEDS: metroNIDAZOLE 500 MG/100 ML BAG 100 MG IVPB ×2 (05:20→19:54)
[2023-04-30 06:39] LABS: Abs Immature Grans 0.14 10^3/uL (0.0-0.06); Absolute Basophil Count 0.04 10^3/uL (0.0-0.2); Absolute Neutrophil Count 18.37 10^3/uL (1.2-6.7); Basophils % 0.2; HCT 51.2 % (40.0-50.0); HGB 17.2 g/dL (13.5-17.5); Immature Grans % 0.7; Lymphocytes % 4.1; MCH 30.5 pg (27.0-33.0); MCHC 33.6 % (32.0-36.0); MCV 91 fL (80-95); MPV 10.1 fL (8.0-11.0); Monocytes % 6.8; Neutrophils % 88.2; Platelet Count 186 10^3/uL (130-400); RBC 5.64 10^6/uL (4.36-5.78); RDW 12.3 % (11.8-14.1); RDW-SD 40.7 fL; WBC 20.83 10^3/uL (4.4-10.8)
[2023-04-30 06:50] LABS: Absolute Lymphocyte Count 0.85 10^3/uL (1.2-3.4); Absolute Monocyte Count 1.42 10^3/uL (0.1-0.8)
[2023-04-30 06:55] LABS: ALT 19 U/L (16-63); AST 23 U/L (15-37); Albumin 3.3 g/dL (3.4-5.0); Alkaline Phosphatase 125 U/L (46-116); Anion Gap 10.1 mmol/L (3-11); BUN 18 mg/dL (7-18); CO2 25.9 mmol/L (21.0-32.0); Calcium 8.7 mg/dL (8.5-10.1); Chloride 106 mmol/L (98-107); Estimated GFR 81.47 (mL/min/1.73m2); Glucose 186 mg/dL (74-106); Lipase 19 U/L (16-77); Sodium 142 mmol/L (136-145); Total Protein 6.5 g/dL (6.4-8.2)
--- NOTE | 2023-04-30 07:11 | PGE_ITS ---
Date of Service Date of service: 04/30/23 Time of Service: 07:11 Assessment and Plan Assessment and plan (1) Acute cholecystitis: Status: Acute Assessment and plan: Were planning for laparoscopic cholecystectomy today. Unfortunately, the bilirubin is a little bit elevated on the comprehensive metabolic panel this morning. However, this is a little complicated by his gilbert syndrome. I will check the direct and indirect bilirubin levels.for now, we will plan on cholecystectomy, with possible intraoperative cholangiogram. Subjective Subjective Interval history since last seen: Matti continued to have pain through the abdomen overnight, which eventually radiated to the right upper quadrant. He denied any more nausea or vomiting. Exam GI Other: Abdomen is soft, and a little more tender over the gallbladder. He is not distended. He does have bowel sounds. Objective Last Vital Signs Temp 99.9 F H 04/29/23 20:14 Pulse 63 04/29/23 20:14 Resp 18 04/29/23 20:14 BP 144/89 H 04/29/23 20:14 Pulse Ox 91 L 04/29/23 20:14 Laboratory Results - last 24 hr 04/29/23 04/29/23 04/29/23 12:09 12:31 14:58 WBC 17.30 H RBC 6.13 H Hgb 18.5 H Hct 54.3 H MCV 89 MCH 30.2 MCHC 34.1 RDW 11.8 Plt Count 264 MPV 10.3 Immature Gran % 0.3 Neutrophils % 89.4 Lymphocytes % 4.4 Monocytes % 5.7 Eosinophils % 0.0 Basophils % 0.2 Nucleated RBC % 0.0 Absolute Neutrophils 15.47 H Absolute Lymphocytes 0.76 L Absolute Monocytes 0.99 H Absolute Eosinophils 0.00 Absolute Basophils 0.03 PT 11.4 H INR 1.1 VBG Lactate 1.8 H Sodium 143 Potassium 4.6 Chloride 103 Carbon Dioxide 32.2 H Anion Gap 7.8 BUN 18 Creatinine 0.9 Est GFR (CKD-EPI 2020) 92.45 Glucose 224 H Calcium 9.5 Magnesium 1.8 Total Bilirubin 2.0 H AST 22 ALT 26 Alkaline Phosphatase 152 H Troponin I < 50 < 50 Total Protein 7.6 Albumin 4.3 Lipase 27 Urine Color Yellow Urine Clarity Clear Urine pH 6.5 Ur Specific [place] 1.015 Urine Protein Negative Urine Ketones >=160 H Urine Blood Negative Urine Nitrite Negative Urine Bilirubin Negative Urine Urobilinogen 0.2 Ur Leukocyte Esterase Negative Urine Glucose 500 H 04/29/23 04/29/23 04/30/23 20:15 21:55 06:22 WBC 20.83 H RBC 5.64 Hgb 17.2 Hct 51.2 H MCV 91 MCH 30.5 MCHC 33.6 RDW 12.3 Plt Count 186 MPV 10.1 Immature Gran % 0.7 Neutrophils % 88.2 Lymphocytes % 4.1 Monocytes % 6.8 Eosinophils % 0.0 Basophils % 0.2 Nucleated RBC % 0.0 Absolute Neutrophils 18.37 H Absolute Lymphocytes 0.85 L Absolute Monocytes 1.42 H Absolute Eosinophils 0.00 Absolute Basophils 0.04 PT INR VBG Lactate Cancelled 1.0 Sodium 142 Potassium 4.0 Chloride 106 Carbon Dioxide 25.9 Anion Gap 10.1 BUN 18 Creatinine 1.0 Est GFR (CKD-EPI 2020) 81.47 Glucose 186 H Calcium 8.7 Magnesium Total Bilirubin 3.0 H AST 23 ALT 19 Alkaline Phosphatase 125 H Troponin I Total Protein 6.5 Albumin 3.3 L Lipase 19 Urine Color Urine Clarity Urine pH Ur Specific [place] Urine Protein Urine Ketones Urine Blood Urine Nitrite Urine Bilirubin Urine Urobilinogen Ur Leukocyte Esterase Urine Glucose Time Spent with Patient Time Spent with Patient: 25-34 minutes Time was spent: preparing to see the patient(eg.review tests), referring, communicating with other health career services officer, indepentently interpreting results and counseling the patient
[2023-04-30] MEDS: CEFEPIME 2 GM in Normal Saline 100 ML IVPB ×2 (08:06→18:18)
[2023-04-30] MEDS: Normal Saline Flush 10 ML SYR IVP (08:07)
[2023-04-30 08:47] LABS: Lab Add On Test DONE
[2023-04-30] MEDS: Insulin Aspart 300 UNITS/3 ML PEN SC ×2 (08:49→18:19)
[2023-04-30 09:14] LABS: Bilirubin, Direct 0.4 mg/dL (0.0-0.2)
[2023-04-30] MEDS: Lactated Ringers 1,000 ML 125 ML IV (10:02)
--- NOTE | 2023-04-30 11:48 | ANES.PREOP_ITS ---
General Info Date of Service Date Performed: 04/30/23 Height: 5 ft 9 in Weight: 83.915 kg Body Mass Index (BMI): 27.3 Surgical Procedure: Operation Date: 04/30/23 10:10 Proposed Procedure Side Surgeon p Cholecystectomy Laparoscopic Cholangio Santos Lawrence MD Meds Allergies and Home Medications Allergies Allergy/AdvReac Type Severity Reaction Status Date / Time ampicillin Allergy Severe Anaphylaxsi Verified 04/29/23 11:12 s Penicillins Allergy Severe Anaphylaxsi Verified 04/29/23 11:12 s sulbactam Allergy Unknown Verified 04/29/23 11:12 oxycodone [Oxycodone] AdvReac Intermediate altered Verified 04/29/23 11:12 mental status Home Medication Medication Instructions Recorded multivitamin 1 cap PO DAILY 09/16/12 blood-glucose meter ([employer] ##1 10/06/17 Ultra2 Meter kit) empagliflozin 10 mg tablet 10 mg PO DAILY #90 tabs 06/18/22 glipizide 10 mg tablet 10 mg PO DAILY #90 tabs 06/26/22 blood sugar diagnostic #100 ea 01/08/23 lancets 33 gauge #100 ea 01/08/23 testosterone 4 pump topical DAILY #450 grams 03/12/23 Current Visit Medications: Current Medications Generic Name Dose Route Start Last Admin Trade Name Freq PRN Reason Stop Dose Admin Dextrose 0 gm 04/29/23 20:15 Glucose Oral Gel 15 Gm/37.5 Gm Tube PO DIRECTED PRN Dextrose/Water 0 gm 04/29/23 20:15 Dextrose 50%-Water 25 Gm/50 Ml Syr IVP DIRECTED PRN Enoxaparin Sodium 40 mg 04/30/23 08:00 04/30/23 09:43 Enoxaparin 40 Mg/0.4 Ml Syr SC Not Given Q24H CLEVE Hydromorphone HCl 0.5 mg 04/30/23 01:32 04/30/23 11:18 Hydromorphone 2 Mg/Ml Syr IVP 0.5 mg Q4H PRN PRN Administration Ringer's Solution 1,000 mls @ 125 mls/hr 04/29/23 20:15 04/30/23 10:02 IV 125 mls/hr INFUSION CLEVE Administration Acetaminophen 1,000 mg in 100 mls @ 400 mls/hr 04/29/23 20:15 04/30/23 09:48 Ofirmev IVPB Infused Q8H PRN PRN Infusion Cefepime HCl 2 gm/ Sodium 100 mls @ 200 mls/hr 04/30/23 00:00 04/30/23 08:45 Chloride IVPB Infused Q8H CLEVE Infusion Metronidazole 500 mg in 100 mls @ 100 mls/hr 04/29/23 22:00 04/30/23 05:20 Flagyl IVPB 100 mls/hr Q8H CLEVE Administration IV Miscellaneous Supplies 1 each 04/29/23 20:15 Iv Access IV [facility]ED [facility] Indocyanine Green 5 mg 04/30/23 08:45 Indocyanine Green 25 Mg Vial IVP [facility] Insulin Aspart 0 units 04/30/23 08:00 04/30/23 08:49 Insulin Aspart 300 Units/3 Ml Pen SC 2 unit 0800,1200,1700 CLEVE Administration Protocol Magnesium Hydroxide 30 ml 04/29/23 20:15 Milk Of Magnesia 30 Ml Cup PO DIRECTED PRN Ondansetron HCl 4 mg 04/29/23 20:15 04/29/23 20:34 Ondansetron 4 Mg/2 Ml Vial IVP 4 mg Q4H PRN PRN Administration Pantoprazole Sodium 40 mg 04/29/23 22:00 04/29/23 21:19 Pantoprazole 40 Mg Vial IVP 40 mg Q24H CLEVE Administration Simethicone 80 mg 04/29/23 20:15 Simethicone 80 Mg Chew PO Q4H PRN PRN Sodium Chloride 0 ml 04/29/23 20:15 Normal Saline Flush 10 Ml Syr IVP PRN PRN Sodium Chloride 0 ml 04/29/23 20:15 04/30/23 08:07 Normal Saline Flush 10 Ml Syr IVP 20 ml BID CLEVE Administration Sodium Chloride 0 ml 04/29/23 20:15 Normal Saline 10 Ml Vial IJ DIRECTED PRN PFSH Active Problems Active Problems: Problem Status Onset Code Acute cholecystitis K81.0 Biliary colic K80.50 Gallstones K80.20 Polycythemia D75.1 Gilbert syndrome E80.4 Hyperlipidemia E78.5 Type 2 diabetes mellitus without complication, without long-term current use of insulin 10/06/17 E11.9 Tinnitus 11/21/13 H93.19 Sensorineural hearing loss, bilateral 12/12/13 H90.3 Impotence of organic origin 06/25/11 N52.9 Hypogonadism in male 09/21/15 E29.1 Spinal stenosis M48.00 Medical History Medical History Impacted cerumen (12/04/14) Personal history of urinary calculi Surgical History Surgical History History of appendectomy History of arthroscopy of knee Status post laminectomy Status post rotator cuff repair Rotator Cuff Repair LEFT 2011 RIGHT 2013 LAMINECTOMY (~2004) FOR EXPLORATION Arthroplasty of knee (~1999) Appendectomy (~2006) H/O surgical procedure a. appendectomy b. shoulder surgeries c. back surgeries with some surgical hardware placed Tobacco Smoking/Tobacco Use Status: Never Passive smoking exposure: No Second hand exposure: No Alcohol Alcohol Intake: current Alcohol intake frequency: a few times a month Alcohol type: hard liquor Substance Use Substance use: Never Substance use type: does not use Vital Signs and Lab Results Vital Signs Most Recent Vital Signs in EMR: Most Recent Vital Signs Temp Pulse Resp BP Pulse Ox 36.9 C 89 20 121/72 96 04/30/23 07:11 04/30/23 07:11 04/30/23 07:11 04/30/23 07:11 04/30/23 07:11 Point of Care Results Point of Care Results: Finger Stick Blood Glucose 181 04/30/23 07:43 Lab Results 04/30/23 06:22 04/30/23 06:22 Blood Type / Crossmatch: 2 No Data to Display Complete Blood Count: 2 White Blood Count 20.83 10^3/uL (4.4-10.8) H 04/30/23 06:22 Red Blood Count 5.64 10^6/uL (4.36-5.78) 04/30/23 06:22 Hemoglobin 17.2 g/dL (13.5-17.5) 04/30/23 06:22 Hematocrit 51.2 % (40.0-50.0) H 04/30/23 06:22 Platelet Count 186 10^3/uL (130-400) 04/30/23 06:22 Venous Blood Lactate 1.0 mmol/L (0.6-1.4) 04/29/23 21:55 Complete Metabolic Panel: 2 Sodium 142 mmol/L (136-145) 04/30/23 06:22 Potassium 4.0 mmol/L (3.5-5.1) 04/30/23 06:22 Chloride 106 mmol/L (98-107) 04/30/23 06:22 Carbon Dioxide 25.9 mmol/L (21.0-32.0) 04/30/23 06:22 BUN 18 mg/dL (7-18) 04/30/23 06:22 Creatinine 1.0 mg/dL (0.70-1.30) 04/30/23 06:22 Est GFR (CKD-EPI 2020) 81.47 (mL/min/1.73m2) 04/30/23 06:22 Magnesium 1.8 mg/dL (1.8-2.4) 04/29/23 12:09 Calcium 8.7 mg/dL (8.5-10.1) 04/30/23 06:22 Albumin 3.3 g/dL (3.4-5.0) L 04/30/23 06:22 Glucose 186 mg/dL (74-106) H 04/30/23 06:22 Liver Function Panel: 2 Alanine Aminotransferase (ALT/SGPT) 19 U/L (16-63) 04/30/23 06: 22 Aspartate Amino Transf (AST/SGOT) 23 U/L (15-37) 04/30/23 06:22 Coagulation Panel: 2 INR International Normalized Ratio 1.1 (0.9-1.1) 04/29/23 12:0 9 Prothrombin Time 11.4 sec (9.1-11.1) H 04/29/23 12:09 Cardiac Panel: 2 Troponin I < 50 ng/L (<or=60) 04/29/23 Arterial Blood Gas: 2 No Data to Display Venous Blood Gas: 2 No Data to Display Pancreas Panel: 2 Lipase 19 U/L (16-77) 04/30/23 06:22 Thyroid Panel: 2 No Data to Display Infectious Disease: 2 No Data to Display Blood Cultures: 2 No Data to Display Toxicology Panel: 2 No Data to Display Imaging and Studies Imaging and Studies Study information below may be from another EMR and interpreted by another provider. Please see original notes in EMR for more complete details. EKG Summary: EKG PATIENT NAME: Matti Umanzor UNIT #: [id number] ORDERING PROVIDER: Thalia Veliz M.D. PRIMARY CARE PROVIDER: MATTHEW DOWNEY NP DATE/TIME OF SERVICE: 04/29/23 1215 : 1955 PERFORMING LOCATION: ER APPROVED REPORT Exam: Resting ECG Reason for Exam: abd pain Patient Location: E HR:61 bpm ECG Measurements Heart Rate 61 AXIS DC 162 P 52 QRSd 81 QRS 20 QT 422 T29 QTc 425 Conclusion Sinus rhythm...normal P axis, V-rate 60- 99 NSR, no acute STTW changes, No STEMI No change from previous - <Electronically signed by Thalia Veliz M.D. in [place]> E-Sign Date: 04/29/23 E-Sign Time: 1306 ADDENDUM APPROVED REPORT Exam: Resting ECG Reason for Exam: abd pain Patient Location: E HR:61 bpm ECG Measurements Heart Rate 61 AXIS DC 162 P 52 QRSd 81 QRS 20 QT 422 T29 QTc 425 Conclusion Sinus rhythm...normal P axis, V-rate 60- 99 NSR, no acute STTW changes, No STEMI No change from previous. no QT prolongation Electronically signed by: <Electronically signed by Thalia Veliz M.D. in [place]> 04/29/23 1651 Cosigned by: Anesthesia Assessment and Plan Anesthesia History Personal History: No History of Anesthesia Complications Family History: No Family History of Anesthesia Complications Exercise Tolerance Exercise Tolerance: Metabolic Equivalents>4 Pertinent Negatives Pertinent Negatives: No Symptoms of GERD, No Major Cardiovascular Symptoms or Complaints, No Major Pulmonary Symptoms or Complaints and No History of CVA/TIA Cardiac & Pulmonary Exam Cardiac Exam: Normal S1/S2 Heart Sounds Pulmonary Exam: Clear Bilateral Breath Sounds Implantable Cardiac Device Does patient have a Pacemaker or an ICD?: No Airway Exam Known Difficult Airway: No Mallampati Class: 2 Mouth Opening: Normal (> 3cm) Thyromental Distance: Greater than 3 cm Neck Range of Motion: Full ROM Neck Circumference: Normal Teeth Condition: Generalized Poor Dentition, Loose or Chipped and Dental Caries Tooth Numberin 1. Missing ASA Classification ASA Score: ASA 2 Emergency Case?: No NPO Status NPO Status: NPO Clears >2 hours, Solids >8 hours Anesthesia Plan Resuscitation Status: Full Code Anesthesia Technique: General Anesthesia Airway Planned: Endotracheal Tube Monitors Used: Standard Monitors Preoperative Comments:: Preop BGL 147
[2023-04-30] MEDS: Lactated Ringers 1,000 ML 30 ML IV ×2 (12:30→14:50)
--- NOTE | 2023-04-30 12:57 | PDOC.CMIN ---
Date of service: 04/30/23 Time of Service: 12:57 Care Management Initial Assmt Initial Assessment REASON FOR HOSPITALIZATION:: Cholecystitis PREVIOUS FUNCTIONAL STATUS/SOCIAL/FAMILY SUPPORTS:: Resides locally in [place], with , Denise. CURRENT FUNCTIONAL STATUS:: Per MD, anticipate laparoscopic cholecystectomy with possible intraoperative cholangiogram once bilirubin normalizes; requiring further monitoring at this time. CM unable to meet with Matti as he is out of room at time of consult, Matti's , daughter and son are awaiting his return from the OR. ADVANCE DIRECTIVES:: BHASKAR MATSON Has patient been provided with info about the portal/API?: Yes Did the patient sign up for the portal?: Yes CODE STATUS:: Full Code INSURANCE COVERAGE / FINANCIAL ISSUES:: BC/BS MCR Replacement CURRENT HOME/COMMUNITY SERVICES/EQUIPMENT:: None, currently. PRIMARY CARE PHYSICIAN:: Semaj Escobar POTENTIAL DISCHARGE NEEDS:: Surgical intervention. Follow up appointments. PATIENT/FAMILY EDUCATION NEEDS:: Review discharge instructions, discuss Ask Me Three ANTICIPATED BARRIERS TO DISCHARGE:: None identified. TRANSPORTATION:: Via private vehicle with family. PLAN:: Matti will be brought to the OR for laparoscopic cholecystectomy, as soon as this afternoon per MD. CM continues to follow. 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 appendectomy b. shoulder surgeries c. back surgeries with some surgical hardware placed Family History Mother , 82 Essential hypertension Stroke Colon cancer Heart disease Hypertension Father , 75 Diabetes Essential hypertension Heart disease MDS (myelodysplastic syndrome) Prostate cancer Sister No problems noted. Brother , 55 Heart disease Myocardial infarction Maternal Grandfather , 60 Lung cancer Paternal Grandfather , 85 Heart disease Cancer Maternal Grandmother , 75 Pancreatic cancer Colon cancer Paternal Grandmother , 94 Heart disease Sister No problems noted. Sister No problems noted. Brother No problems noted. Son No problems noted. Son No problems noted. Daughter No problems noted. 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 Pets and animals: No Sexually active: No Do you think of yourself as: straight/heterosexual Current gender identity: male What is your relationship status?: How often do you talk on the phone with friends or family?: never How often do you get together with friends or relatives?: decline to answer How often do you attend jain or baptism services?: decline to answer Do you belong to any clubs or organized social groups?: decline to answer Panel score (0-1 are the most socially isolated patients): 1 NHANES result reviewed/action taken: No Duration: 30-45 minutes/day Frequency: 5-6 times per week Noemí/Methodist: No preference Special noemí needs: No Seatbelt use: always Drive intox or ride w/intox route sales delivery drivers supervisor: No Do you feel safe in your relationship?: Yes
[2023-04-30] MEDS: Indocyanine green 25 MG VIAL 5 MG IVP (13:21)
--- NOTE | 2023-04-30 14:12 | GB_PTH ---
PATIENT: Matti Umanzor LOC: [facility]#:[id number] AGE/SX: 67/M ROOM: 214 RE05/02/[address]: Santos Lawrence MD : 1955 BED: A DIS: 05/03/2023 SPEC #: [id number] RECD: 04/30/23 17:18 STATUS: NATTY REQ #: [id number] DONG: 04/30/23 14:[address]: Santos Lawrence DEPT: Surgical Specimen RECD BY: Mishel Lombardi ENTERED: 04/30/23 17:19 SP TYPE: GB OTHR DR: Semaj Escobar, STEPHANIE Tissues: 1 - GALLBLADDER Procedures: GROSS AND MICRO LEVEL 3 Comments: [id number]
[2023-04-30] MEDS: Bupivacaine 0.5% Pres-Free 30 ML VIAL (14:51)
[2023-04-30] MEDS: Bupivacaine LIPOSOME/PF 133 MG/10 ML VIAL IJ (14:53)
--- NOTE | 2023-04-30 15:36 | W.ANESVAS ---
Midline Placement Date Performed: 04/30/23 Procedure Time: 14:11 Requesting Provider: Santos Lawrence Procedure Location: Operating Room Sedation Given (Indicate Dose Given): No Sedation given Patient Mental Status: Performed under general anesthesia Sterility: Hand Hygiene, Surgical Cap, Surgical Mask, Sterile Gloves, Sterile Drape/Sheet and Chlorhexidine Laterality: Left Insertion Site: Basilic Midline Device: PowerGlide Pro 18G Catheter Length: 10 cm Midline Procedure Procedure: Vessel accessed with needle, Vessel accessed with catheter over needle, Guidewire placed with ease, Catheter placed without resistance and Guidewire removed Dressing: Tegaderm Applied and Statlock Applied Blood Return: Present Flushes: Easily Ultrasound: Sterile probe cover and gel used Ultrasound Image Saved?: Yes Number of Attempts (See previous attempts in note section): 1 Procedure Tolerated: No Complications Procedure Outcome: Successful Performed By: Roberta Argueta
--- NOTE | 2023-04-30 16:10 | CHAPLAIN ---
I visited with Matti's , daughter and son while they were waiting for Matti to return from surgery. I will continue to visit.
--- NOTE | 2023-04-30 16:41 | W.ANESPOSTOP ---
Postoperative Evaluation Date, Time and Location Date Performed: 04/30/23 Time Performed: 16:42 Patient Location: PACU Vital Signs Most Recent Imported Vital Signs: Most Recent Vital Signs Temp Pulse Resp BP Pulse Ox 36.6 C 90 17 138/69 94 04/30/23 16:35 04/30/23 16:35 04/30/23 16:35 04/30/23 16:35 04/30/23 16:35 Pain Score Most Recent Pain Score: Most Recent Pain Score Pain Level 8 04/30/23 11:18 Assessment Mental Status: Awake (Alert & Oriented to Patient Baseline) Airway and Respiratory Function: Patent airway with normal (patient baseline) respiratory exam Cardiovascular Function: Hemodynamically Stable Hydration Status: Adequately Hydrated Nausea & Vomiting: No Nausea or Vomiting Pain: Pain is tolerable per patient Peripheral Nerve Block: Patient did not receive a nerve block Postoperative Comments:: Will go up on O2, encouraged to cough and deep breathe along with IS.
--- NOTE | 2023-04-30 19:45 | ROE_ITS ---
Date of service: 04/30/23 Time of Service: 19:46 Operative Note Operative Note DATE OF PROCEDURE: 04/30/23 PRE-OP DIAGNOSIS: Cholecystitis POST-OP DIAGNOSIS: other (gangrenous cholecystitis) PROCEDURE: Open cholecystectomy SURGEON: Santos Lawrence CREDIT CONTROL ADMINISTRATOR: Chantale Kaplan ANESTHESIA TYPE: General LMA/ETT Refer to Anesthesia Record ESTIMATED BLOOD LOSS: 100 PATHOLOGY: other (gallbladder) COMPLICATIONS: None Patient was transported to: PACU Patient's condition: stable Implants: 19 Monegasque Louis drain Indications: Matti is a 67-year-old male with acute onset of abdominal pain that since radiated to the right upper quadrant. CAT scan showed significant burden of cholelithiasis. Elevated white blood cell count and alk phos suggest that the diagnosis of acute cholecystitis. Findings: Gangrenous cholecystitis Procedure Description: After the initiation of general endotracheal anesthesia, I prepped and draped the anterior abdominal wall in the usual fashion. Next, because of the presence of a small umbilical hernia, I made a semicircular incision on the upper side of the umbilicus. I carefully dissected down to the fascia. There was a small umbilical defect that was about 1 x 1 cm. There was a small hernia sac that I opened, and reduced some omental fat back into the peritoneum. Next, I slightly enlarge the defect to accommodate a 12 mm Cooley port. I fixed this to the fascia with an interrupted Vicryl stitch. The peritoneum was insufflated, and a 5 mm 30 degree scope was inserted. Next, under the direct vision of the scope, I placed a midepigastric port, as well as a port in the right upper quadrant. There was a significant amount of inflammation and greater omentum adherent to the dome of the gallbladder. There was some murky fluid up over the liver. This was irrigated clear, and I began dissecting the omentum off of the gallbladder. There was a tremendous amount of inflammation and thick rind over the gallbladder with areas of patchy necrosis. The gallbladder was difficult to grasp, was decompressed with a needle. Thick black bile was drained. Once the gallbladder was a little softer, the dome was grasped and retracted a bit cephalad. Again, there were quite thick adhesions all along the gallbladder body down towards the infundibulum. There were multiple areas of what appeared to be full-thickness ischemia. In light of the severity of the inflammation, the difficulty identifying true planes, I felt the safest thing to do at this point was to open. Therefore, remove the ports, and made a right upper quadrant subcostal incision. I dissected down through the muscular layers of the abdominal wall, and carefully opened the peritoneum. Self-retaining retracting device was then placed. The dome of the gallbladder was grasped with a Kelsie clamp, and the adhesive plane between the gallbladder and the liver within the gallbladder fossa was incised. Using combination of energize, blunt dissection, I was able to separate the gallbladder from the gallbladder fossa in a dome down fashion. Again, there was a thick inflammatory rind all around the circumference of the gallbladder. The true gallbladder wall was necrotic. I carefully dissected down towards the infundibulum. Because of the severity of the inflammation down by the gallbladder neck, I felt the safest thing to do is perform a subtotal cholecystectomy. Therefore, as I dissected down on the infundibulum, I gently milked some gallstones back up into the gallbladder body. A Kelsie clamp was then placed across the gallbladder infundibulum close to the gallbladder neck. The gallbladder was excised with Metzenbaum scissors and passed off the field. There was no bleeding. The surgical site was copiously irrigated. Next, using a running horizontal mattress suture underneath of the Kelsie clamp, the cystic neck was closed. This was oversewn with running 2-0 Prolene. The surrounding rind was then closed over top of it with interrupted silk stitches. In light of the possibility of a biliary leak, I did feel that implantation of a surgical drain was a safe choice here. Therefore, I delivered a 19 Monegasque Louis drain through the anterior abdominal wall inferior to the incision and laid the drain within the gallbladder fossa. The site was examined. It was hemostatic. The site was irrigated once again. Care was taken to ensure that the transverse colon and omentum laid in their normal anatomic position. The incision was then closed in multiple layers with running 2-0 PDS sutures. Irrigation was performed between each layer. The skin was closed with surgical stapler. A 5 mm port site in the right upper quadrant was irrigated, and a single staple was used to approximate the skin. Finally, I turned my attention back to the umbilical incision site. The fascia was cleaned up back to healthy margins, and closed in a horizontal fashion with interrupted Vicryl sutures. The subcutaneous layers were irrigated, and the skin was closed with surgical agnes. The right-sided abdominal drain was affixed to the skin with a single suture. A clary dressing was placed on the subcostal incision, a Band-Aid was used over the umbilical incision, and the drain was secured in place with a drain sponge. We did perform a straight catheterization at the end of the operation to assess urine production during the course. Clear yellow urine was drained without any difficulty. The patient was then allowed to awaken from anesthesia, and transferred to the recovery unit.
[2023-04-30] MEDS: Ketorolac 15 MG/ML VIAL IVP (23:07)
[2023-05-01] MEDS: CEFEPIME 2 GM in Normal Saline 100 ML IVPB ×3 (01:27→18:04)
[2023-05-01] MEDS: metroNIDAZOLE 500 MG/100 ML BAG 100 MG IVPB ×3 (03:18→20:08)
[2023-05-01 06:54] LABS: HCT 46.6 % (40.0-50.0); HGB 15.5 g/dL (13.5-17.5); MCH 29.8 pg (27.0-33.0); MCHC 33.3 % (32.0-36.0); MCV 90 fL (80-95); MPV 10.4 fL (8.0-11.0); Platelet Count 192 10^3/uL (130-400); WBC 19.97 10^3/uL (4.4-10.8)
[2023-05-01 07:03] VITALS: BP 128/71; PULSE 76; RESP 17; TEMP 36.6; O2SAT 95
--- NOTE | 2023-05-01 07:07 | W.PM.PROGNOT ---
Date of Service Date of service: 05/01/23 Time of Service: 07:07 Assessment and Plan Assessment and plan (1) Acute cholecystitis: Status: Acute Assessment and plan: Matti is doing very well after open cholecystectomy. Hopefully, he will be able to tolerate clears well today, and we can advance him through this afternoon. His labs are still pending at this point, but I hope that did start improving soon. I encouraged him to get out of bed and move around a little bit as best he can this morning. Subjective Subjective Interval history since last seen: Matti did great overnight. He little bit of pain early postoperatively, but was able to sleep through the night without any issue. He feels pretty good laying down today. He has been sipping on some liquids without any nausea or vomiting. However, his appetite has not really returned yet. Exam GI Other: His abdomen is soft, minimally distended. He has some tenderness over the incision sites. The clray dressing looks great. Surgical drain is mostly bloody, but thinning. I do not see any evidence of bile at this point. It was low volume overnight. Objective Last Vital Signs Temp 97.9 F 05/01/23 07:03 Pulse 76 05/01/23 07:03 Resp 17 05/01/23 07:03 BP 128/71 05/01/23 07:03 Pulse Ox 95 05/01/23 07:03 Laboratory Results - last 24 hr 04/30/23 06:22 Conjugated Bilirubin 0.4 H Add-On Test Request DONE Time Spent with Patient Time Spent with Patient: 25-34 minutes Time was spent: preparing to see the patient(eg.review tests) and counseling the patient
[2023-05-01] MEDS: Enoxaparin 40 MG/0.4 ML SYR SC (07:16)
[2023-05-01 07:17] LABS: ALT 34 U/L (16-63); AST 42 U/L (15-37); Albumin 2.7 g/dL (3.4-5.0); Alkaline Phosphatase 105 U/L (46-116); Anion Gap 7.2 mmol/L (3-11); BUN 31 mg/dL (7-18); Bilirubin, Total 2.1 mg/dL (0.2-1.0); CO2 25.8 mmol/L (21.0-32.0); CREATININE 1.2 mg/dL (0.70-1.30); Calcium 8.8 mg/dL (8.5-10.1); Chloride 104 mmol/L (98-107); Estimated GFR 65.46 (mL/min/1.73m2); Glucose 255 mg/dL (74-106); Potassium 4.2 mmol/L (3.5-5.1); Sodium 137 mmol/L (136-145); Total Protein 5.8 g/dL (6.4-8.2)
[2023-05-01] MEDS: Insulin Aspart 300 UNITS/3 ML PEN SC ×3 (08:16→17:00)
--- NOTE | 2023-05-01 11:29 | PDOC.CMPRO ---
Date of service: 05/01/23 Time of Service: 11:30 Care Management Progress Note Progress Note Text Progress Note Text: S/O: Matti was sitting up in his chair when CM met with him. He stated that he is doing well today, and that per MD, he will likely be ready for discharge in 24-48H. His was in the room, visiting. They talked about how they had to postpone their [place] gathering due to his hospitalization, but everyone understands, and they will reschedule to accommodate the whole family. Matti stated that he was able to have clear liquids for lunch, and his diet will be advanced for dinner, which he is happy about. Per report, his labs are improving. CM will continue to follow. A: Matti is a 67 year old male admitted to [facility] on 04/29/23 for cholecystitis. P: Anticipate Matti will return home once medically cleared. His will drive him home via private vehicle when ready. He will follow up with his PCP and discharge plan of care. CM will continue to follow.
[2023-05-01 12:15] VITALS: O2SAT 93
[2023-05-01] MEDS: Ketorolac 15 MG/ML VIAL IVP ×2 (15:02→21:55)
[2023-05-01] MEDS: Normal Saline Flush 10 ML SYR IVP ×3 (15:04→21:56)
[2023-05-01 15:06] VITALS: BP 143/84; PULSE 73; RESP 20; TEMP 35.9; O2SAT 94
[2023-05-01 19:39] VITALS: BP 107/64; PULSE 71; RESP 19; TEMP 36.6; O2SAT 93
[2023-05-01] MEDS: Psyllium PKT 1 EACH PO (20:09)
[2023-05-02] MEDS: ACETAMINOPHEN 1,000 MG/100 ML BTL 400 MG IVPB ×4 (00:33→23:38)
[2023-05-02] MEDS: Normal Saline Flush 10 ML SYR IVP ×8 (00:34→23:39)
[2023-05-02] MEDS: CEFEPIME 2 GM in Normal Saline 100 ML IVPB ×3 (01:51→17:02)
[2023-05-02] MEDS: metroNIDAZOLE 500 MG/100 ML BAG 100 MG IVPB ×3 (04:11→19:43)
[2023-05-02 06:58] LABS: HCT 41.4 % (40.0-50.0); HGB 14.1 g/dL (13.5-17.5); MCH 30.1 pg (27.0-33.0); MCHC 34.1 % (32.0-36.0); MCV 88 fL (80-95); MPV 10.8 fL (8.0-11.0); Platelet Count 175 10^3/uL (130-400); RBC 4.69 10^6/uL (4.36-5.78); RDW 12.2 % (11.8-14.1); RDW-SD 39.7 fL; WBC 12.28 10^3/uL (4.4-10.8)
[2023-05-02 07:13] VITALS: BP 149/74; PULSE 61; RESP 20; TEMP 36.4; O2SAT 93
[2023-05-02] MEDS: Normal Saline 500 ML 100 ML IV (08:08)
[2023-05-02] MEDS: Enoxaparin 40 MG/0.4 ML SYR SC (08:09)
[2023-05-02] MEDS: Psyllium PKT 1 EACH PO ×2 (08:10→19:42)
[2023-05-02] MEDS: Insulin Aspart 300 UNITS/3 ML PEN SC ×3 (08:18→17:01)
[2023-05-02] MEDS: traMADol 50 MG TAB PO (11:22)
--- NOTE | 2023-05-02 11:30 | IN_ITS ---
PT Notes Visit Reasons: cholecystitis Physical Therapy Inpatient Initial Evaluation Date: 05/02/2023 Referring Doctor: Cheryle Winters MD PT Orders: PT CONSULT: Eval/Treat Precautions: Fall. Standard. Activity as tolerated. Patient Profile/Admitting Diagnosis: Matti is a 67-year-old male with diagnosis of cholecystitis and is status post open cholecystectomy on postoperative day 1. 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 appendectomy b. shoulder surgeries c. back surgeries with some surgical hardware placed Social History/Home Situation: Lives with in a private home with 2 steps to enter with rails on both sides. Independent with all aspects of ADLs prior to surgery. Equipment Owned/DME: None Subjective: Reports 1/10 pain in over surgical incision at rest; 5-6 out of 10 with ambulation. Denies headache, chest pain, and lightheadedness throughout session. Unsure of when he can go home. Hoping that he could have a bowel movement today. Objective: General Observation: Dressing over surgical incision. IV access through left UE. Ellyn present throughout session. Mental Status: Alert and oriented as to person, place, time, and purpose. Able to pay attention, focus, and respond appropriately. Pain: As above Vital Signs: Closely monitored by nursing staff ROM: Right Upper Extremity: Shoulder Flexion WFL. Shoulder abduction WFL. Elbow flexion WFL. Wrist flexion WFL. Functional opening and closing of hand WFL. Left Upper Extremity: Shoulder Flexion WFL. Shoulder abduction WFL. Elbow flexion WFL. Wrist flexion WFL. Functional opening and closing of hand WFL. Right Lower Extremity: Hip flexion WFL. Hip abduction WFL. Knee flexion WFL. Ankle dorsiflexion WFL. Ankle plantarflexion WFL. Left Lower Extremity: Hip flexion WFL. Hip abduction WFL. Knee flexion WFL. Ankle dorsiflexion WFL. Ankle plantarflexion WFL. Strength: Right Upper Extremity: Shoulder flexors 5/5. Shoulder abductors 5/5. Elbow flexors 5/5. Elbow extensors 5/5. Lead Systems Analyst strong. Left Upper Extremity: Shoulder flexors 5/5. Shoulder abductors 5/5. Elbow flexors 5/5. Elbow extensors 5/5. Lead Systems Analyst strong. Right Lower Extremity: Hip flexors 4/5. Hip abductors 4/5. Knee flexors 5/5. Knee extensors 4/5. Ankle dorsiflexors 5/5. Ankle plantarflexors 5/5. Left Lower Extremity: Hip flexors 4/5. Hip abductors 4/5. Knee flexors 5/5. Knee extensors 4/5. Ankle dorsiflexors 5/5. Ankle plantarflexors 5/5. Bed Mobility/Transfers: Minimal cueing provided for use of B hands as needed for support, movement sequence, AD management, and and posture to reduce fall risk and minimize pain report. Rolling independent Supine to sit supervision Sit to supine supervision Sit to stand supervision Stand to sit supervision Bed to bedside commode supervision Bedside commode to bed supervision Bed to reclining chair supervision Reclining chair to bed supervision Gait: Facilitated safe and correct performance of level surface ambulation covering a distance of 600 feet using single-point cane on the right with IV pole management and supervision assist provided by PT. walking along. Mild postural sway to right noted which patient and said is something new and maybe because he has not walked far until earlier today. Cane minimized sway to the R. No report of vertigo throughout. Stand by assist to contact guard assist to minimize swaying. Minimal verbal cueing provided for AD management and overall safety. Stairs: Guided patient with safe and correct negotiation of 6 x 4 inch steps and 4 x 6 inch steps holding onto cane on the right and rail on the left side with step over step pattern without report of increased pain and vertigo with minimal verbal cueing provided for overall safety and correct gait pattern Balance: Static Sitting: Normal Dynamic Sitting: Normal Static Standing: Fair Dynamic Standing: Fair Special Tests: Mobility Limitations Standardized Measure [facility] AM-PAC 6 clicks Basic Mobility Inpatient Short Form: Raw Score: 23 CMS Score: 11% deficit Informed Consent/Education: Patient was instructed in purpose of PT consult and plan of care. Agreeable to proceed with established PT POC to achieve personal goals. ASSESSMENT: Patient requires the use of a single-point cane to minimize her right postural sway that may increase risk for falls as well and is to lessen pain report. Patient presents with clinical signs and symptoms consistent with current/admitting diagnoses that have resulted to mobility limitations, gait instability, generalized weakness, and overall ADL decline as demonstrated by the following impairment level findings: 1. Impaired standing balance 3. Impaired activity tolerance 4. Pain in surgical incision at 5-610 with walking Impairments are contributing to the following functional limitations: 1. Decline in bed mobility skills 2. Decline in transfer skills 3. Difficulty with ambulation without assistive device and physical assistance 4. Increased completion time for mobility ADL performance 5. Increased risk for falls 6. Difficulty with managing steps alone safely Patient is assessed as a [id number] moderate complexity based on the following: History: 67-year-old male with past medical history as indicated above Examination: Demonstrable impairment in strength, balance, and mobility level with underlying impairments and functional limitations as exhibited above as well as deficit score of 11% utilizing the [facility] Mobility Inpatient Short Form Presentation: Evolving Decision Makin moderate complexity Goals: Goals X1 week 1. Supine-Sit independent 2. Sit-Supine independent 3. Sit-Stand independent 4. Stand-Sit independent with SPC 5. Bed-Chair independent with SPC 6. Chair-Bed independent with SPC 7. Independent gait on level surface with use of SPC for at least 1000 feet without report of pain nor dyspnea 8. Independent stair negotiation while holding onto 1 rails for at least 3 steps without report of pain nor dyspnea 9. Independent with home exercise program 10. Good static and dynamic standing balance/tolerance Plan of Care/Treatment Plan: 1-2x/day, 7 days/week x 1 week. Plan of care has been reviewed with the LOGISTICS ACCOUNT MANAGER providing the service under Physical Therapy direction. Initiate Physical Therapy intervention for pain management as needed, strengthening, bed mobility, transfers, gait, stairs, balance training, and use of assistive device. -Provide HEP for home before discharge to maximize functional mobility, ensure post op healing, and reduce pain report. DISCHARGE RECOMMENDATIONS: [X] Home with no services. Home when medically cleared by hospitalist. Patient has been provided with a single-point cane to minimize pain over surgical incision and increased ability of gait. [] Home with services [specify] [] Home with outpatient PT [] [] SNF for continued rehabilitation [] [] Manager Trainee Care [] [] SNF versus LTC based on ability to participate and progress [] TREATMENT CODE/TIME: 19139 x 20 minutes for 1 unit beginning at 11:30 AM. Thank you for the opportunity to participate in the care of this patient. Sandra Duarte PT, DPT, CLT [facility] [place], [place]
[2023-05-02] MEDS: Polyethylene Glycol 3350 17 GM PACKET PO (14:08)
[2023-05-02 15:26] VITALS: BP 153/81; PULSE 52; RESP 18; TEMP 36.4; O2SAT 97
--- NOTE | 2023-05-02 17:29 | W.PM.PROGNOT ---
Date of Service Date of service: 05/02/23 Time of Service: 13:00 Assessment and Plan Assessment and plan (1) Acute cholecystitis: Status: Acute Assessment and plan: POD#2 open romi doing well low fat diet d/c drain in am prob can d/c home in am DVT: lovenox abx: Maxpeme and flagyl miralax pain plan pulm toilet cont walk (2) Gallstones: Status: Acute (3) Hyperlipidemia: Status: Acute (4) Type 2 diabetes mellitus without complication, without long-term current use of insulin: Status: Chronic (5) S/P cholecystectomy: Subjective Subjective Interval history since last seen: Pt is doing well. no headaches. No CP or SOB. no productive cough. no dysuria. no leg pain or swelling. He is tolerating diet. He has been up walking. He has not had a BM yet. Drain is sero-sang. Will plain on removal tomorrow. Exam Narrative Exam Narrative: PHYSICAL EXAM GENERAL APPEARANCE: Alert, healthy appearance, oriented, x 3,? in no acute distress HYDRATION: Well hydrated HEAD, EYES, EARS, NECK, THROAT: Head is normocephalic, pupils equal, round, reactive to light and accommodation, ocular movement intact, sclera clear and no jaundice. ?Dentition intact. No sore throat.? No jaw pain. No thrush LUNGS: normal respiration/normal chest excursion. ?Clear to auscultation bilaterally. ?No wheeze. ?HEART: Regular rate and rhythm. no murmurs EXTREMITY: No edema or cyanosis.? no leg pain, redness, swelling.? ABDOMEN: good BS. drain- sero-sang. good BS. AGUSTINA in place. Objective Last Vital Signs Temp 36.4 C L 05/02/23 15:26 Pulse 52 L 05/02/23 15:26 Resp 18 05/02/23 15:26 BP 153/81 H 05/02/23 15:26 Pulse Ox 97 05/02/23 15:26 Laboratory Results - last 24 hr 05/02/23 05:54 WBC 12.28 H RBC 4.69 Hgb 14.1 Hct 41.4 MCV 88 MCH 30.1 MCHC 34.1 RDW 12.2 Plt Count 175 MPV 10.8 Time Spent with Patient Time Spent with Patient: 25-34 minutes Time was spent: preparing to see the patient(eg.review tests), obtaining and/or reviewing separately otained hiistory, ordering medications,tests, procedures, referring, communicating with other health healthcare representative, indepentently interpreting results, counseling the patient and care coordination
--- NOTE | 2023-05-02 17:43 | DSE_ITS ---
Date of service: 05/03/23 Time of Service: 10:03 DS: Diagnosis Discharge Diagnosis (1) Acute cholecystitis: Status: Acute (2) Gallstones: Status: Acute (3) Hyperlipidemia: Status: Acute (4) Type 2 diabetes mellitus without complication, without long-term current use of insulin: Status: Chronic (5) S/P cholecystectomy: Discharge Plan Disposition Patient Disposition: Home Condition: Improving Discharge Details Reason For Visit: cholecystitis Admit Date/Time: 05/02/23 12:43 Admit Provider: Santos Lawrence Attending Provider: Santos Lawrence Primary Care Provider: Semaj Escobar Hospital Course Hospital Course: see addendum Home Meds and New Rx's Prescriptions: New metronidazole 500 mg tablet 500 mg PO TID 5 Days Qty: 15 0RF tramadol 50 mg tablet 50 mg PO Q4H PRNQty: 10 0RF levofloxacin 500 mg tablet 500 mg PO DAILY 5 Days Qty: 5 0RF Continued glipizide 10 mg tablet 10 mg PO DAILY Qty: 90 3RF multivitamin 1 EACH capsule 1 cap PO DAILY (DME) blood-glucose meter [[employer] Ultra2 Meter] 1 EACH kit 1 ea Miscellaneous DAILY Qty: 1 0RF empagliflozin 10 mg tablet 10 mg PO DAILY Qty: 90 3RF (DME) lancets 33 gauge misc 1 ea Miscellaneous DAILY Qty: 100 4RF Rx Instructions: One daily (DME) blood sugar diagnostic Strip See Dose Instructions .ROUTE .MEDSUPPLY Qty: 100 4RF Dose Instruction: One Daily Rx Instructions: One Daily testosterone 20.25 mg/1.25 gram (1.62 %) gel in metered-dose pump 4 pump TP DAILY Qty: 450 3RF Rx Instructions: apply 2 pumps over max area of EACH upper arm and shoulder Discharge Instructions Additional Instructions: Care after Gallbladder Surgery -Pain control: ?For the first 5days after surgery, take your pain meds continuously, and not just when you have pain.?? Alternate Tylenol 1000mg by mouth every 8 hours, and Ibuprofen 600mg every 6 hours.? Make sure you take ibuprofen with food and not on an empty stomach.? ??Use the tramadol for breakthrough pain- pain that is greater than a 7. ?- Use ICE! Ice really helps to keep the swelling down, and swelling causes pain. ??Twenty minutes on, and then off, continuously for the first 5days.? After the first 5days, you can just use the Tylenol, ibuprofen and ice, when you have pain.?? If you are taking narcotic pain medication, follow the instructions on the label and do not drive. Pain medications can make you very constipated. Make sure you are moving your bowels daily. If not, take Miralax. - Anesthesia makes you very constipated.? Take a dose of Miralax the morning after surgery. ? Use an ice bag for the first 5days. This helps to decrease swelling, which causes pain. It is normal to be more sore/painful and swollen towards the end of the day and first thing in the morning. ? Use Miralax or prune juice to prevent constipation (this is a particular side effect of pain medication and anesthesia). Do not allow yourself to become constipated. ? Avoid fatty or greasy foods; introduce these slowly, with care, after about 1 month. High-fat foods include: ? Foods that are fried, like [place] fries and potato chips ? High-fat meats, such as cisneros, bologna, sausage, ground beef, and ribs, pork products ? High-fat dairy products, such as cheese, ice cream, cream, whole milk, and sour cream ? Pizza ? Foods made with lard or butter ? Creamy soups or sauces ? Meat gravies ? Chocolate ? Oils, such as palm and coconut oil ? Skin of chicken or turkey ? Nuts and nut butters ? Avocadoes ? Start out eating very small, bland amounts of food. Do not take pain pills on an empty stomach. - Leave AGUSTINA dressing in place, we will remove that at your follow-up appointment. You will need to cover this to shower. The light should complete green. If it is blinking red or orange, turn the unit off by pressing and holding down on the orange button and contact the office. If it is at night you can contact the office in the morning. -You should walk frequently, gradually, increasing the distance. You may climb stairs, just go slowly. ? Do not go swimming or sit in a hot tub for two weeks. ? There are no stitches to remove. ? Do not drive your car x1 week, and then only if you have no pain and can move freely. Do not drive if you are taking pain narcotic pain medications. ? You may resume sexual activity whenever pain and soreness subside, usually in 2 weeks. ? Do no lift anything over 5 lbs. for two weeks. ? You may return to work in one week, or when you feel able, provided you do not have to do any heavy lifting or prolonged standing. ? You should return to Dr. Lawrence?s office for a post-op appointment about 1 weeks after surgery. please call the [facility] at: [phone] to schedule an appointment. My Medications for pain and nausea are: Tylenol/ibuprofen ?and ultram- for severe pain ?and Zofran-nausea When to Call the Office: ? If the incision becomes red or swollen, or there is more than a little drainage from it. ? If you develop a temperature higher than 100.5 F. ? If your eyes turn yellow ? Vomiting and can?t keep fluids down Activity:: See above Equipment/Supplies:: W/C Diet:: See above Discharge Orders Discharge Orders: Discharge Order (Routine); Ordered 05/03/23 Ordered By: Cheryle Winters DS: Summary Time Spent with Patient providing and/or coordinating discharge services: Less than 30 minutes Status at Discharge Functional status at discharge: independent ambulation Overall status at discharge: patient is back to baseline Mental Status: mental status grossly normal Speech and Movement: speech and movement normal Mood: congruent mood Affect: normal affect Exam Psych Mental Status: mental status grossly normal Speech and Movement: speech and movement normal Mood: congruent mood Affect: normal affect DS: Data Vitals/I&O Vitals and I&O: Vital Signs Temperature 36.4 C L 05/02/23 15:26 Temperature Source Tympanic 05/02/23 15:26 Pulse 52 L 05/02/23 15:26 Pulse Rhythm Regular 05/02/23 16:45 Pulse 98 H 04/29/23 18:35 Respiratory Rate 18 05/02/23 15:26 Respiratory Effort Normal, Non-Labored 05/02/23 16:45 Respiratory Depth Normal 05/02/23 16:45 Respiratory Pattern Normal 05/02/23 16:45 Blood Pressure 153/81 H 05/02/23 15:26 Blood Pressure Mean 94 04/29/23 18:34 Pulse Oximetry 97 05/02/23 15:26 Respiratory End-tidal CO2 35 04/30/23 16:45 Oxygen Delivery Method Room Air 05/02/23 15:26 Oxygen Flow Rate 0 05/02/23 15:26 Pain Level 2 05/02/23 15:52 Comment Pt. denies pain at this time. 05/02/23 07:10 Intake & Output 05/01/23 05/02/23 05/02/23 23:59 11:59 23:59 Intake Total 960 / 1320 2303.334 / 3578.334 1275 / 3578.334 Output Total 20 / 1060 Balance 940 / 260 2293.334 / 3548.334 1255 / 3548.334 Intake: IV 200 / 500 1843.334 / 2088.334 245 / 2088.334 Oral 760 / 760 460 / 1490 1030 / 1490 Output: Drainage Right Lower Abdomen Other: Urine Color Yellow Yellow Urine Appearance Clear Clear Clear Urine Odor Normal Normal Comment Per pt. report, void x1 in the toilet. Void x1 in the toilet. 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 appendectomy b. shoulder surgeries c. back surgeries with some surgical hardware placed Family History Mother , 82 Essential hypertension Stroke Colon cancer Heart disease Hypertension Father , 75 Diabetes Essential hypertension Heart disease MDS (myelodysplastic syndrome) Prostate cancer Sister No problems noted. Brother , 55 Heart disease Myocardial infarction Maternal Grandfather , 60 Lung cancer Paternal Grandfather , 85 Heart disease Cancer Maternal Grandmother , 75 Pancreatic cancer Colon cancer Paternal Grandmother , 94 Heart disease Sister No problems noted. Sister No problems noted. Brother No problems noted. Son No problems noted. Son No problems noted. Daughter No problems noted. 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 Pets and animals: No Sexually active: No Do you think of yourself as: straight/heterosexual Current gender identity: male What is your relationship status?: How often do you talk on the phone with friends or family?: never How often do you get together with friends or relatives?: decline to answer How often do you attend muslim or jainism services?: decline to answer Do you belong to any clubs or organized social groups?: decline to answer Panel score (0-1 are the most socially isolated patients): 1 NHANES result reviewed/action taken: No Duration: 30-45 minutes/day Frequency: 5-6 times per week Noemí/Sabianist: No preference Special noemí needs: No Seatbelt use: always Drive intox or ride w/intox wagon driver: No Do you feel safe in your relationship?: Yes Time Spent with Patient Time Spent with Patient: 45-69 minutes Time was spent: preparing to see the patient(eg.review tests), obtaining and/or reviewing separately otained hiistory, ordering medications,tests, procedures, referring, communicating with other health cattle care worker, indepentently interpreting results, counseling the patient and care coordination
[2023-05-02] MEDS: Ketorolac 15 MG/ML VIAL IVP (19:42)
[2023-05-02 23:34] VITALS: BP 160/91; PULSE 65; RESP 18; TEMP 37; O2SAT 94
[2023-05-03] MEDS: CEFEPIME 2 GM in Normal Saline 100 ML IVPB ×2 (02:04→10:40)
[2023-05-03] MEDS: Normal Saline Flush 10 ML SYR IVP ×7 (02:04→11:17)
[2023-05-03] MEDS: metroNIDAZOLE 500 MG/100 ML BAG 100 MG IVPB (04:15)
[2023-05-03] MEDS: Ondansetron 4 MG/2 ML VIAL IVP (06:40)
[2023-05-03 07:08] VITALS: BP 162/88; PULSE 64; RESP 16; TEMP 36.1; O2SAT 95
[2023-05-03] MEDS: Psyllium PKT 1 EACH PO (07:25)
[2023-05-03] MEDS: Enoxaparin 40 MG/0.4 ML SYR SC (07:25)
[2023-05-03] MEDS: ACETAMINOPHEN 1,000 MG/100 ML BTL 400 MG IVPB (07:26)
[2023-05-03] MEDS: Insulin Aspart 300 UNITS/3 ML PEN SC (07:34)
--- NOTE | 2023-05-03 08:42 | PT.INTREAT ---
PT Notes Visit Reasons: cholecystitis 05/03/2023 Precautions: Fall. Standard. Activity as tolerated. Therapeutic procedures [id number] 10mins: Instruction in therapeutic exercises to develop strength and endurance, range of motion and flexibility. HEP instruction and review: Provided skilled instruction in proper exercise performance: Provided skilled manual cues to facilitate proper muscle recruitment and/or movement pattern: Access Code: [email or web address] URL: [email or web address] Date: 05/03/2023 Prepared by: Orlando Duarte Exercises - Supine Bridge - 1 x daily - 7 x weekly - 1 sets - 10 reps - Supine Active Straight Leg Raise - 1 x daily - 7 x weekly - 1 sets - 10 reps - Supine Lower Trunk Rotation - 1 x daily - 7 x weekly - 1 sets - 10 reps - Clamshell - 1 x daily - 7 x weekly - 1 sets - 10 reps - Sidelying Hip Abduction - 1 x daily - 7 x weekly - 1 sets - 10 reps - Seated Short Arc Quad - 1 x daily - 7 x weekly - 1 sets - 10 reps - Seated Long Arc Quad - 1 x daily - 7 x weekly - 1 sets - 10 reps - Seated Knee Extension AROM - 1 x daily - 7 x weekly - 1 sets - 10 reps - Seated March - 1 x daily - 7 x weekly - 1 sets - 10 reps - Seated Hip External Rotation AROM - 1 x daily - 7 x weekly - 1 sets - 10 reps - Seated Hip Internal Rotation AROM - 1 x daily - 7 x weekly - 1 sets - 10 reps - Standing Hip Abduction with Counter Support - 1 x daily - 7 x weekly - 1 sets - 10 reps - Standing Hip Extension with Counter Support - 1 x daily - 7 x weekly - 1 sets - 10 reps - Standing March with Counter Support - 1 x daily - 7 x weekly - 1 sets - 10 reps - Mini Squat with Counter Support - 1 x daily - 7 x weekly - 1 sets - 10 reps - Heel Raises with Counter Support - 1 x daily - 7 x weekly - 1 sets - 10 reps - Standing Ankle Dorsiflexion with Table Support - 1 x daily - 7 x weekly - 1 sets - 10 reps Pt education about HEP, pt reports he understands and is able to follow paper copy for guidance with exercises. PLAN: Continue with global strengthening and general conditioning for improved mobility and activity tolerance. TREATMENT CODE/TIME: ?[id number] 10minutes (8:30-8:40am)
[2023-05-03] MEDS: Normal Saline 500 ML 100 ML IV (10:40)
--- NOTE | 2023-05-03 10:43 | PDOC.CMDIS ---
Date of service: 05/03/23 Time of Service: 10:43 LACE Index Scoring Tool Questions: Length of Stay (in days): 1 Was the patient admitted via the E.D.?: Yes Comorbidities: Diabetes w/o Complication E.D. Visits: 1 Answers: Total Score: 6 Risk of Readmission: Low Risk Care Management Discharge Plan Reason for Hospitalization: Cholecystitis Discharge Plan: Matti will be discharged home with no new services. He will follow up with his community providers and plan of care and transport with his . Patient/Family Education Needs: Review discharge instructions, activity, diet, limitations, follow up plan, discuss Ask Me Three
[2023-05-03] MEDS: Bacitracin 1 PACKET TP (11:17)
== END 2023-05-03 12:04 | disposition home or self-care (01) | DRG 416 ==
LOC: ER 17:29 → MS 04-30 00:50
PROVIDERS: Admitting Provider Surgery; Emergency Provider Emergency Medicine Emergency Medical Services; PCP Nurse Practitioner Family; Visit Provider Surgery
PROC: 0FT44ZZ Resection of Gallbladder, Percutaneous Endoscopic Approach (ICD-10-PCS; CPT 47563; principal; 2023-04-30 10:00)
DX: K80.00 Calculus of gallbladder with acute cholecystitis without obstruction (principal); K82.A1 Gangrene of gallbladder in cholecystitis; M48.00 Spinal stenosis, site unspecified; H90.3 Sensorineural hearing loss, bilateral; E11.9 Type 2 diabetes mellitus without complications; E80.4 Gilbert syndrome; D75.1 Secondary polycythemia; Z79.4 Long term (current) use of insulin
CPT/HCPCS: 47600; 36410; 36415; 74177; 80053; 83690; 85027; 93005; 96361; 96365; 96366; 96375; 96376; 97110; 97162; 99222; 99232; 99291; J1650; 71260; 81003; 82248; 83605; 83735; 84484; 85025; 85610; 88304; 93010; J0131; J1100; J1170; J1885; J1956; J2001; J2371; J2405; J3010; J3475; J3490

== ENCOUNTER → 2023-05-13 13:34 | Outpatient (BNVA) | payer MEDICARE, BC, SELFPAY | PROVIDERS: PCP Nurse Practitioner Family; Referring Provider Nurse Practitioner Family; Visit Provider Surgery | DX: Z48.815 Encounter for surgical aftercare following surgery on the digestive system (principal) ==

== ENCOUNTER 2024-02-17 04:48 | Outpatient (CLI) | payer MEDICARE, SELFPAY ==
[2024-02-17 12:24] LABS: HCT 53.3 % (40.0-50.0); MCH 30.9 pg (27.0-33.0); MCHC 33.8 % (32.0-36.0); MCV 91 fL (80-95); MPV 10.8 fL (8.0-11.0); Platelet Count 243 10^3/uL (130-400); RBC 5.83 10^6/uL (4.36-5.78); RDW 12.2 % (11.8-14.1); RDW-SD 40.9 fL
[2024-02-17 13:32] LABS: Anion Gap 9.1 mmol/L (3-11); BUN 18 mg/dL (7-18); CO2 29.9 mmol/L (21.0-32.0); CREATININE 1.1 mg/dL (0.70-1.30); Calcium 9.2 mg/dL (8.5-10.1); Calculated LDL 94 mg/dL (<100); Chloride 104 mmol/L (98-107); Cholesterol 181 mg/dL (<200); Estimated GFR 72.22 (mL/min/1.73m2); Glucose 267 mg/dL (74-106); HDL Cholesterol 53 mg/dL (40-60); Potassium 4.1 mmol/L (3.5-5.1); Sodium 143 mmol/L (136-145); Triglyceride 170 mg/dL (<150)
[2024-02-17 19:27] LABS: PSA, Screening 2.4 ng/mL (<=6.5)
[2024-02-20 13:21] LABS: Testosterone, Total 361 ng/dL (240-950)
== END 2024-02-17 04:49 | disposition home or self-care (01) ==
LOC: LOS 04:49
PROVIDERS: PCP Nurse Practitioner Family; Visit Provider Nurse Practitioner Family
DX: Z13.1 Encounter for screening for diabetes mellitus (principal); D75.1 Secondary polycythemia; E29.1 Testicular hypofunction; Z13.6 Encounter for screening for cardiovascular disorders; Z12.5 Encounter for screening for malignant neoplasm of prostate
CPT/HCPCS: 36415; 80048; 80061; 84153; 84403; 85027

== ENCOUNTER 2024-03-01 02:00 | Outpatient (CLI) | payer MEDICARE, SELFPAY ==
[2024-03-02 12:33] LABS: Lyme Ab w Rflx to Lyme Confirm Negative (Negative)
[2024-03-04 09:05] LABS: Anaplasma phagocytophilum Negative (Negative); B. miyamotoi PCR Negative (Negative); Babesia divergens/MO-1 Negative (Negative); Babesia duncani Negative (Negative); Babesia microti Negative (Negative); Ehrlichia chaffeensis Negative (Negative); Ehrlichia ewingii/canis Negative (Negative); Ehrlichia muris eauclairensis Negative (Negative)
== END 2024-03-01 02:01 | disposition home or self-care (01) ==
LOC: LOS 02:00
PROVIDERS: PCP Nurse Practitioner Family; Visit Provider Nurse Practitioner Family
DX: M25.50 Pain in unspecified joint (principal); R53.81 Other malaise
CPT/HCPCS: 36415; 87798; 86618

== ENCOUNTER 2024-04-12 01:47 | Outpatient (CLI) | payer MEDICARE, SELFPAY ==
--- NOTE | 2024-04-12 07:00 | DI.MRI_ITS ---
Exam(s) MR LUMBAR SPINE WO EXAM: MR LUMBAR SPINE WO CLINICAL HISTORY: worsening leg/BILAT LOW back pain,M54.50. TECHNIQUE: Multiplanar multisequence MRI of the Lumbar spine was performed. COMPARISON: MR MRI - LUMBAR SPINE W/WO CONT from 07/14/2012 FINDINGS: Bones: The last intervertebral disc space is designated the L5/S1 level for the numbering purpose of this ex amination. The vertebral body heights are well maintained. Alignment: Unremarkable. The marrow signal characteristics are unremarkable. Cord: The conus tip ends at the T12 level. It is of normal size and signal intensity. T12-L1: No focal disc herniation is present. No central spinal canal stenosis.No neural foraminal st enosis. L1-2: No focal disc herniation is present. No central spinal canal stenosis.No neural foraminal sten osis. L2-3:Moderate loss of disc height. Small Schmorl's nodes noted inferior endplate of L2. Concentric disc bulging and endplate osteophytes. Facet degenerative changes and ligamentous hypertrophy. No f ocal disc herniation is present. Moderate central spinal canal stenosis.Mild right and moderate lef t neural foraminal stenosis. L3-4: Moderate loss of disc height. Endplate osteophytes and concentric disc bulging. Laminectomy d efect. Facet degenerative changes and ligamentous hypertrophy.No focal disc herniation is present. Moderate central spinal canal stenosis.Mild bilateral neural foraminal stenosis. L4-5: Mild loss of disc height. Endplate osteophytes and mild disc bulging. Schmorl's nodes at the inferior endplate of L4 and superior endplate of L5. Laminectomy defect. Facet degenerative change s. No focal disc herniation is present. Mild central spinal canal stenosis.Moderate bilateral neura l foraminal stenosis. L5-S1: Disc height is maintained. Small endplate osteophytes. no focal disc herniation is present. No significant facet degenerative changes. No central spinal canal stenosis.No neural foraminal st enosis. The visualized SI joints and sacrum are unremarkable. Soft tissues: The paraspinal soft tissues are unremarkable. IMPRESSION: Prior laminectomy is noted at L3-4 and L4-5. Combination of degenerative changes cause moderate central canal stenosis at L2-3 and L3 4. Mild central canal stenosis mild and moderate bilateral neural foraminal narrowing at L4-5. DATA REPOSITORY:
== END 2024-04-12 02:07 ==
LOC: DI 01:47
PROVIDERS: PCP Nurse Practitioner Family; Visit Provider Nurse Practitioner Family
DX: M48.062 Spinal stenosis, lumbar region with neurogenic claudication (principal)
CPT/HCPCS: 72148

== ENCOUNTER 2024-06-06 12:15 | Outpatient (CLI) | payer MEDICARE, SELFPAY ==
--- NOTE | 2024-06-06 12:18 | PDOC.PAIN_ITS ---
Date of service: 06/06/24 Time of Service: 13:11 Pain Managment Procedure Note Procedure Note Procedure Note: Caudal Epidural Steroid Injection ? Location: Caudal Epidural Space ?Pre-procedure Diagnosis: M54.17-Radiculopathy, lumbosacral region M96.1 Postlaminectomy syndrome, not elsewhere classified ? Post-procedure Diagnosis:? The same as above ? Sedation:? none? Estimated blood loss:? less than 2 cc ?Surgeon:? Austin Mckeon MD COMMENT: Patient is status post spine surgery years ago. Patient has had epidural steroid injection in the past at L2-[address] Merida at [facility] and gave her excellent relief. The pain is now below his knees and a caudal procedure is scheduled. ? Procedure Detail:?? The procedure and potential risks were explained to the patient and informed written consent was obtained. The patient was escorted to the procedure room and placed in the prone position. Pillows were utilized for proper positioning and comfort. Time out was performed in the procedure room with nursing staff confirming the patient's identity, procedure to be performed, allergies, and any blood thinning or anti-platelet medications. The patient's lower back/coccyx area was prepped with ChloraPrep x2 and draped in a sterile fashion. Sterile technique was maintained throughout the procedure.? Sterile gloves were used, a face mask was worn, and new single dose vials of all medications were used with the top being swabbed with alcohol and given time to dry prior to withdrawal of medication. Subcutaneous 1% lidocaine was instilled into the superficial soft tissue of the patient's lower back/coccyx area for local anesthesia using a 25-gauge 1.5 inch needle. Under fluoroscopic guidance a 17G Tuohy needle was placed within the caudal canal. An 19 G Arrow catheter was directed cephalad to L5. 1cc of Omnipaque 240 contrast was injected showing appropriate spread in the caudal epidural space.? Placement was confirmed in AP and lateral projection. 80 mg of Depo-Medrol and 3 ml saline was injected without complication. The needle and catheter was removed intact. The patient tolerated the procedure well and was transported to the recovery area for observation and discharge instructions. Permanent images saved and recorded. Plan:? Follow prn. PAIN: PRE-PROCEDURE 5 /10 POST-PROCEDURE 0/10 COMMENT: Could repeat if he gets good long-lasting relief or reevaluate in the office.
[2024-06-06 12:29] VITALS: BP 133/107; PULSE 93; RESP 20; TEMP 36.7; O2SAT 96
[2024-06-06 12:52] VITALS: PULSE 90; O2SAT 94
[2024-06-06 13:00] VITALS: PULSE 89; O2SAT 96
[2024-06-06] MEDS: Nerve Block Tray 1 EACH MC (13:12)
[2024-06-06] MEDS: Omnipaque 240 MG/ML 50 ML BTL IJ (13:12)
[2024-06-06] MEDS: Normal Saline 20 ML VIAL 10 ML IJ (13:13)
[2024-06-06] MEDS: methylPREDNISolone ACETATE 40 MG/ML VIAL IJ (13:13)
--- NOTE | 2024-06-06 13:13 | DI.RAD_ITS ---
Exam(s) XR PAIN CLINIC LUMBAR SP 2V EXAM: XR PAIN CLINIC LUMBAR SP 2V CLINICAL HISTORY: DX: Lumbar Radiculopathy TECHNIQUE: 2D and realtime digital imaging was performed. CONTRAST MATERIAL: Refer to procedure report. COMPARISON: No exams were available for comparison FINDINGS: Fluoroscopy was provided for Dr. Mckeon during the performance of a caudal epidural steroid injecti on. Please refer to the procedure report for complete details. Ka,r=5.4 mGy IMPRESSION: RADIATION DOSE DELIVERED: 0.0 0.0 0
== END 2024-06-06 12:16 | disposition home or self-care (01) ==
LOC: PC 12:15
PROVIDERS: PCP Nurse Practitioner Family; Visit Provider Anesthesiology Pain Medicine
DX: M54.50 Low back pain, unspecified (principal); M54.17 Radiculopathy, lumbosacral region; M96.1 Postlaminectomy syndrome, not elsewhere classified
CPT/HCPCS: 00123; 62323; 72100; J1010; Q9967

== ENCOUNTER → 2024-12-07 08:44 | Outpatient (BNVA) | payer MEDICARE, SELFPAY | PROVIDERS: PCP Nurse Practitioner Family; Referring Provider Nurse Practitioner Family; Visit Provider Physical Therapy Assistant | DX: Z12.11 Encounter for screening for malignant neoplasm of colon (principal); Z80.0 Family history of malignant neoplasm of digestive organs; E11.9 Type 2 diabetes mellitus without complications | CPT/HCPCS: S0285 ==

== ENCOUNTER 2024-12-19 09:25 | Day surgery (SDC) | payer MEDICARE, SELFPAY ==
--- NOTE | 2024-12-18 17:33 | W.PM.DSUDISC ---
Date of service: 12/19/24 Discharge Plan Disposition Patient Disposition: Home Condition: Good Discharge Details Reason For Visit: screening colonoscopy Attending Provider: Santos Lawrence Primary Care Provider: Semaj Escobar Home Meds and New Rx's Prescriptions: Continued (DME) pen needle, diabetic [Ultra-Thin II Ins Pen [place]] 29 gauge x 1/2 needle See Rx Instructions .Route Qty: 100 3RF Rx Instructions: Daily insulin glargine [Lantus Solostar U-100 Insulin] 100 unit/mL (3 mL) insulin pen 30 unit subcut QAM multivitamin 1 EACH capsule 1 cap PO DAILY (DME) blood-glucose meter [OneTouch Ultra2 Meter] 1 EACH kit 1 ea Miscellaneous DAILY Qty: 1 0RF (DME) lancets 33 gauge misc 1 ea Miscellaneous DAILY Qty: 100 4RF Rx Instructions: One daily (DME) blood sugar diagnostic Strip See Dose Instructions .ROUTE .MEDSUPPLY Qty: 100 4RF Dose Instruction: One Daily Rx Instructions: One Daily glipizide 10 mg tablet 10 mg PO DAILY Qty: 90 3RF testosterone 20.25 mg/1.25 gram (1.62 %) gel in metered-dose pump 4 pump TP DAILY Qty: 450 3RF Rx Instructions: apply 2 pumps over max area of EACH upper arm and shoulder nystatin 100,000 unit/gram ointment 1 applic topical BID Qty: 30 1RF Discharge Instructions Additional Instructions: Matti, I was happy to see you enjoy today. Hope you feel well after the procedure. Things went very smoothly. The prep was excellent, and I could see everything fine. I think your colonoscopy was normal, but there were 2 very small areas that I removed was just to be safe. Certainly, these are nothing at all to worry about. I will have the pathologist review them. If they negative turner apprentice to be polyps, then we will use that information to guide the Future colonoscopies. Those results will take about a week or so to get back, but once I have them, we will be in touch. If you need anything in the meantime, please do not hesitate to call me at any time. [phone] 1. If tolerated, consume a soft, low fiber diet for 1-2 days. 2[address] Do not drive, drink alcohol, operate machinery, make critical decisions, or do activities that require coordination or balance for 24 hours. 3. Because air was put into your colon during the procedure, expelling air from your rectum (passing gas or farting) is normal. 4. You may not have a bowel movement for 1-3 days because of the colonoscopy prep. This is normal. 5. Go directly to the emergency room if you notice any of the following: Develop chills (warm to touch), or if you have a thermometer and your temperature is above 101 Difficulty breathing or difficultly swallowing Persistent vomiting Severe abdominal pain, other than gas cramps Severe chest pain Black, tarry stools Any bleeding ? exceeding one tablespoon 6. Call your physician if the site where your intravenous was started becomes red, swollen, painful, and warm to touch. 7. Your physician has reviewed your pre-procedure medications. Please continue to take those medications as previously ordered. You will be given specific information/education regarding any changes to your medications before leaving. Activity:: Activity as Tolerated Diet:: As Tolerated Discharge Orders Discharge Orders: Discharge Order (Routine); Ordered 12/18/24 Ordered By: Santos Lawrence DS: Diagnosis Discharge Diagnosis (1) Encounter for screening colonoscopy: Status: Acute Asessment and Plan: Follow-up on polypectomy results
--- NOTE | 2024-12-18 17:35 | COLE_ITS ---
Date of service: 12/19/24 Time of Service: 12:31 Colonoscopy Report Date of procedure: 12/19/24 Pre-op diagnosis general: screening colonoscopy Post-op diagnosis procedure note: other (Colon polyps) Procedure: colonoscopy with polypectomy Surgeon: Santos Lawrence Anesthesia Type: General:No Airway Estimated blood loss (mL): 5 Pathology: other (Less than 0.25 cm cecal polyp, less than 0.25 cm ascending colon polyp) Complications: None Disposition: same day Indications: Matti is a 69 year old man who needs a screening colonoscopy Prep: Miralax/Dulcolax Procedure Start Time: 11:55 Procedure End Time: 12:15 Retraction Time: 14 Findings: Less than 0.25 cm cecal polyp, less than 0.25 cm ascending colon polyp Procedure Description: After the induction of anesthesia, and with Matti in left lateral decubitus position, I began by performing an external anorectal exam.? Perineum and skin were normal, as was the anal verge.? There was no evidence of external hemorrhoids.? Next, I performed a digital rectal exam.? I did not appreciate any abnormal findings.? Next, I advanced a colonoscope into the rectal vault.? I performed retroflexion.? This appeared normal.? Using irrigation, I then advanced the colonoscope beyond the rectal folds and into the sigmoid colon before advancing towards the cecum.? The scope was noted to be in the cecum by identification of the ileocecal valve and appendiceal orifice.?In the base of the cecum, just a few millimeters away from the appendiceal orifice was a small area of polypoid tissue. This was removed by cold forceps. I then began withdrawing the colonoscope using repeated irrigation as necessary for full evaluation of the colonic mucosa. ?In the ascending colon was another small area of polypoid tissue. This was well less than 0.25 cm, and mostly flat. I removed this with cold forceps without any problems. Once the scope was withdrawn to the level of the rectum, great care was taken to examine portions of the rectal folds.? Finally, the scope was withdrawn and the patient was brought to the same-day surgery recovery unit as the anesthetic wore off. ?The findings and instructions were shared with the patient prior to discharge. [place] Bowel Prep [place] Bowel Prep Right Colon: 2 Left Colon: 3 Transverse Colon: 3 Total Score: 8
--- NOTE | 2024-12-19 10:47 | NUR.NOTE ---
1 tbls honey given PO at 1045Nursing Note:
[2024-12-19 10:48] VITALS: BP 142/86; PULSE 94; RESP 18; TEMP 36.5; O2SAT 96
[2024-12-19] MEDS: Lactated Ringers 1,000 ML 80 ML IV (11:04)
--- NOTE | 2024-12-19 11:39 | W.ANESPRE ---
General Info Date of Service Date Performed: 12/19/24 Height: 5 ft 9 in Weight: 87.3 kg Body Mass Index (BMI): 28.4 Surgical Procedure: Operation Date: 12/19/24 11:20 Proposed Procedure Side Surgeon celi Lawrence MD Meds Allergies and Home Medications Allergies Allergy/AdvReac Type Severity Reaction Status Date / Time ampicillin Allergy Severe Anaphylaxsi Verified 12/19/24 10:44 s Penicillins Allergy Severe Anaphylaxsi Verified 12/19/24 10:44 s sulbactam Allergy Unknown Diarrhea Verified 12/15/24 13:18 oxycodone (Oxycodone) AdvReac Intermediate altered Verified 12/15/24 13:18 mental status Home Medication ?Medication ?Instructions ?Recorded multivitamin 1 cap PO DAILY 09/16/12 blood-glucose meter ([employer] ##1 10/06/17 Ultra2 Meter kit) blood sugar diagnostic #100 ea 01/27/24 lancets 33 gauge #100 ea 01/27/24 pen needle, diabetic 29 gauge x #100 ea 05/18/24 1/2 (Ultra-Thin II Insulin Pen [place]) glipizide 10 mg tablet 10 mg PO DAILY #90 tabs 06/28/24 testosterone 4 pump topical DAILY #450 grams 06/28/24 nystatin 100,000 unit/gram topical 1 applic topical BID #30 grams 11/09/24 ointment insulin glargine 100 unit/mL (3 30 unit subcut QAM 11/21/24 mL) subcutaneous pen (Lantus Solostar U-100 Insulin) Current Visit Medications: Current Medications Generic Name Dose Route Start Last Admin Trade Name Freq PRN Reason Stop Dose Admin Ringer's Solution 1,000 mls @ 80 mls/hr 12/19/24 06:00 12/19/24 11:04 IV 12/19/24 23:59 80 mls/hr INFUSION CLEVE Administration IV Miscellaneous Supplies 1 each 12/19/24 06:00 Iv Access IV 12/19/24 23:59 DIRECTED CLEVE Ondansetron HCl 4 mg 12/18/24 17:36 Ondansetron 4 Mg/2 Ml Vial IVP 01/17/25 17:35 Q4H PRN PRN Nausea / Vomiting Sodium Chloride 0 ml 12/19/24 06:00 Normal Saline Flush 10 Ml Syr IV 12/19/24 23:59 PRN PRN Sodium Chloride 0 ml 12/19/24 06:00 Normal Saline 10 Ml Vial IJ 12/19/24 23:59 DIRECTED PRN Sterile Water 0 ml 12/19/24 06:00 Water,Injection,Sterile 10 Ml Vial IJ 12/19/24 23:59 DIRECTED PRN PFSH Active Problems Active Problems: Problem Status Onset Code Encounter for screening colonoscopy Acute Z12.11 H/O laminectomy Acute ~09/2024 Z98.890 Arthritis of hand, degenerative Acute M19.049 Spondylosis of lumbosacral joint without myelopathy Acute M47.817 Lumbar post-laminectomy syndrome Acute M96.1 Lumbar spinal stenosis Acute M48.061 Lumbar back pain with radiculopathy affecting lower extremity Acute M54.16 Acute cholecystitis Acute K81.0 Polycythemia Acute D75.1 Gilbert syndrome Acute E80.4 Hyperlipidemia Acute E78.5 Type 2 diabetes mellitus without complication, without long-term current use of insulin Chronic 10/06/17 E11.9 Tinnitus Chronic 11/21/13 H93.19 Sensorineural hearing loss, bilateral Chronic 12/12/13 H90.3 Impotence of organic origin Chronic 06/25/11 N52.9 Hypogonadism in male Chronic 09/21/15 E29.1 Spinal stenosis Chronic M48.00 Medical History Medical History Impacted cerumen (12/04/14) Personal history of urinary calculi Surgical History Surgical History S/P cholecystectomy open History of appendectomy History of arthroscopy of knee Status post laminectomy Status post rotator cuff repair Rotator Cuff Repair LEFT 2011 RIGHT 2013 LAMINECTOMY (~2004) FOR EXPLORATION Arthroplasty of knee (~1999) Appendectomy (~2006) H/O surgical procedure a. appendectomy b. shoulder surgeries c. back surgeries with some surgical hardware placed Tobacco Smoking/Tobacco Use Status: Never Passive smoking exposure: No Second hand exposure: No Alcohol Alcohol Intake: current Alcohol intake frequency: a few times a month Alcohol type: hard liquor Substance Use Substance use: Never Substance use type: does not use Vital Signs and Lab Results Vital Signs Most Recent Vital Signs in EMR: Most Recent Vital Signs Temp Pulse Resp BP Pulse Ox 36.5 C 94 H 18 142/86 H 96 12/19/24 10:48 12/19/24 10:48 12/19/24 10:48 12/19/24 10:48 12/19/24 10:48 Point of Care Results Point of Care Results: Finger Stick Blood Glucose 108 12/19/24 11:09 Lab Results Complete Metabolic Panel: Hemoglobin A1c, (4.5-5.7) 6.6 % H 11/21/24, 08:17 Imaging and Studies Imaging and Studies Study information below may be from another EMR and interpreted by another provider. Please see original notes in EMR for more complete details. EKG Summary: EKG PATIENT NAME: Matti Umanzor UNIT #: [id number] ORDERING PROVIDER: Thalia Veliz M.D. PRIMARY CARE PROVIDER: MATTHEW DOWNEY NP DATE/TIME OF SERVICE: 04/29/23 1215 : 1955 PERFORMING LOCATION: ER APPROVED REPORT Exam: Resting ECG Reason for Exam: abd pain Patient Location: E HR:61 bpm ECG Measurements Heart Rate 61 AXIS MS 162 P 52 QRSd 81 QRS 20 QT 422 T29 QTc 425 Conclusion Sinus rhythm...normal P axis, V-rate 60- 99 NSR, no acute STTW changes, No STEMI No change from previous <Electronically signed by Thalia Veliz M.D. in [place]> E-Sign Date: 04/29/23 E-Sign Time: 1306 ADDENDUM APPROVED REPORT Exam: Resting ECG Reason for Exam: abd pain Patient Location: E HR:61 bpm ECG Measurements Heart Rate 61 AXIS MS 162 P 52 QRSd 81 QRS 20 QT 422 T29 QTc 425 Conclusion Sinus rhythm...normal P axis, V-rate 60- 99 NSR, no acute STTW changes, No STEMI No change from previous. no QT prolongation Electronically signed by: <Electronically signed by hTalia Veliz M.D. in [place]> 04/29/23 1651 Cosigned by: Anesthesia Assessment and Plan Anesthesia History Personal History: No History of Anesthesia Complications Family History: No Family History of Anesthesia Complications Exercise Tolerance Exercise Tolerance: Metabolic Equivalents>4 Pertinent Negatives Pertinent Negatives: No Symptoms of GERD, No Major Cardiovascular Symptoms or Complaints and No Major Pulmonary Symptoms or Complaints Cardiac & Pulmonary Exam Cardiac Exam: Normal S1/S2 Heart Sounds Pulmonary Exam: Clear Bilateral Breath Sounds Implantable Cardiac Device Does patient have a Pacemaker or an ICD?: No Airway Exam Known Difficult Airway: No Mallampati Class: 2 Mouth Opening: Normal (> 3cm) Thyromental Distance: Greater than 3 cm Neck Range of Motion: Full ROM Neck Circumference: Normal Teeth Condition: Generalized Poor Dentition, Loose or Chipped and Dental Caries ASA Classification ASA Score: ASA 3 Emergency Case?: No NPO Status NPO Status: NPO Clears >2 hours, Solids >8 hours Anesthesia Plan Resuscitation Status: Full Code Anesthesia Technique: General Anesthesia Airway Planned: Natural Airway Monitors Used: Standard Monitors
[2024-12-19 11:42] VITALS: BMI 28.4
--- NOTE | 2024-12-19 12:07 | BOWEL_PTH ---
PATIENT: Matti Umanzor LOC: [facility] U#:[id number] AGE/SX: 69/M ROOM: RE12/19/[address]: Santos Lawrence MD : 1955 BED: DIS: 12/19/2024 SPEC #: [id number] RECD: 12/19/24 13:09 STATUS: NATTY RE #: [id number] DONG: 12/19/24 12:[address]: Santos Lawrence DEPT: Surgical Specimen RECD BY: Mishel Lombardi ENTERED: 12/19/24 13:11 SP TYPE: Bowel OTHR DR: Semaj Escobar, [employer] DE[employer]MENT CHAIR Tissues: 1 - BIOPSY BOWEL 2 - BIOPSY BOWEL Procedures: GROSS AND MICRO LEVEL 4 Comments: [id number]
[2024-12-19 12:20] VITALS: BP 124/86; PULSE 87; RESP 17; TEMP 36.6; O2SAT 94
[2024-12-19 12:48] VITALS: BP 125/79; PULSE 73; RESP 16; TEMP 36.6; O2SAT 97
--- NOTE | 2024-12-19 12:58 | W.ANESPOSTOP ---
Postoperative Evaluation Date, Time and Location Date Performed: 12/19/24 Time Performed: 12:20 Patient Location: Day Surgery Unit Vital Signs Most Recent Imported Vital Signs: Most Recent Vital Signs Temp Pulse Resp BP Pulse Ox 36.6 C 73 16 125/79 97 12/19/24 12:48 12/19/24 12:48 12/19/24 12:48 12/19/24 12:48 12/19/24 12:48 Pain Score Most Recent Pain Score: Most Recent Pain Score Pain Level 0 12/19/24 12:48 Assessment Mental Status: Awake (Alert & Oriented to Patient Baseline) Airway and Respiratory Function: Patent airway with normal (patient baseline) respiratory exam Cardiovascular Function: Hemodynamically Stable Hydration Status: Adequately Hydrated Nausea & Vomiting: No Nausea or Vomiting Pain: Pt. Denies Any Pain Peripheral Nerve Block: Patient did not receive a nerve block
[2024-12-19 13:05] VITALS: BP 125/79; BP 131/84; PULSE 73; PULSE 82; RESP 16; RESP 18; TEMP 36.4; TEMP 36.6; O2SAT 96; O2SAT 97
== END 2024-12-19 13:29 | disposition home or self-care (01) ==
LOC: SUR 09:25
PROVIDERS: PCP Nurse Practitioner Family; Visit Provider Surgery
PROC: 0DJD8ZZ Inspection of Lower Intestinal Tract, Via Natural or Artificial Opening Endoscopic (ICD-10-PCS; CPT 45378; principal; 2024-12-19 11:15)
DX: Z12.11 Encounter for screening for malignant neoplasm of colon (principal); D12.0 Benign neoplasm of cecum; D12.2 Benign neoplasm of ascending colon
CPT/HCPCS: 45380; 88305; J2003; J2704

== ENCOUNTER 2025-02-09 10:55 | Outpatient (REF) | payer MEDICARE, SELFPAY ==
[2025-02-09 15:19] LABS: HCT 49.4 % (40.0-50.0); HGB 16.7 g/dL (13.5-17.5); MCH 30.1 pg (27.0-33.0); MCHC 33.8 % (32.0-36.0); MCV 89 fL (80-95); MPV 10.4 fL (8.0-11.0); Platelet Count 276 10^3/uL (130-400); RBC 5.54 10^6/uL (4.36-5.78); RDW 11.9 % (11.8-14.1); RDW-SD 38.7 fL; WBC 5.96 10^3/uL (4.4-10.8)
[2025-02-09 15:41] LABS: Hemoglobin A1C 6.5 % (<5.7)
[2025-02-09 15:47] LABS: ALT 33 U/L (16-63); AST 29 U/L (15-37); Albumin 4.2 g/dL (3.4-5.0); Alkaline Phosphatase 136 U/L (46-116); Anion Gap 6.9 mmol/L (3-11); BUN 16 mg/dL (7-18); Bilirubin, Total 1.4 mg/dL (0.2-1.0); CO2 31.1 mmol/L (21.0-32.0); Calcium 9.4 mg/dL (8.5-10.1); Calculated LDL 99 mg/dL (<100); Chloride 102 mmol/L (98-107); Cholesterol 184 mg/dL (<200); Estimated GFR 94.62 (mL/min/1.73m2); Glucose 136 mg/dL (74-106); HDL Cholesterol 48 mg/dL (>or=40); Potassium 5.3 mmol/L (3.5-5.1); Sodium 140 mmol/L (136-145); TSH (W/Ref FT4) 1.65 uIU/mL (0.36-3.74); Total Protein 7.3 g/dL (6.4-8.2); Triglyceride 187 mg/dL (<150)
[2025-02-09 17:11] LABS: COMMENT (LAB VIEW ONLY) 50.11 mg/dL; Microalb ug/mg Crea 12.8 ug/mg Cr
[2025-02-09 22:10] LABS: PSA, Screening 3.1 ng/mL (<=6.5)
[2025-02-17 23:25] LABS: Testosterone, Free 41.6 pg/mL (30.0-135.0)
== END 2025-02-09 10:56 | disposition home or self-care (01) ==
LOC: NCHCN 10:55
PROVIDERS: Visit Provider Family Medicine
DX: E11.69 Type 2 diabetes mellitus with other specified complication (principal); Z79.4 Long term (current) use of insulin; R79.89 Other specified abnormal findings of blood chemistry
CPT/HCPCS: 80053; 80061; 84153; 84402; 84403; 85027; 82043; 82570; 83036; 84443